=== PATIENT | male | born 1940 | race Caucasian/White ===

== ENCOUNTER 2017-12-22 17:50 | Inpatient (IN) | payer MEDICARE, OTHER, SELFPAY ==
[2017-12-22] VITALS (7 sets, daily range): BP systolic 140–187; BP diastolic 55–91; PULSE 62–110; RESP 15–18; TEMP 36.8–36.9; O2SAT 96–100; BMI 24.9; BMI 24.3
--- NOTE | 2017-12-22 18:46 | ED.FALL ---
HPI - Fall General Chief Complaint: Fall Stated Complaint: GLF Time Seen by Provider: 12/22/17 18:06 Source: patient and family Mode of arrival: EMS Limitations: no limitations History of Present Illness HPI Narrative: 77-year-old male with a history of Parkinson's disease seen by primary care provider down in [place] here for evaluation after the patient and his who is at bedside state that for the past month he has had progressive worsening of falls. He has fallen before 1 month ago however they state that over the past month they become more frequent and are now occurring on a daily basis and sometimes multiple times a day. Patient's states that he has been evaluated multiple times in the past at outside emergency department where she states that is only treatment has been IV fluid and then discharged home. She states that they have talked with his primary doctor regarding the situation and they have been told that ???nothing can be done ???patient does not see a neurologist. The primary doctor manages his Parkinson's disease. 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 Patient does not see a tent finisher on a regular basis. Patient states that the symptoms that he is in for today happen on random basis at home. Occasionally happen with change in positions such as sitting to standing but also happen when he is just standing. He does use a walker at baseline at home. He states that when the symptoms come on they are sudden onset. He states that he feels like his heart is ???beating slow ???when they happen. He states that he gets lightheaded. Has occasional vertigo during that time. States that his vision becomes blurry. Does not have any ringing in his ears. He states that he does fall when these events happen. Occasionally loses consciousness completely but also has occasion where he does not. He states that when he does lose consciousness he thinks that it is only for very short period of time. He states that when the events happen he has to lay on the floor for short period of time and then is able to get himself up but has to go and sit and then states that it is up to an hour before he can go about his daily activities. He states that after this our/recovery time he is back to his baseline. Related Data Home Medications Medication Instructions Recorded Confirmed Lactobacillus acidophilus 1 cap PO DAILY 12/22/17 12/22/17 [Probiotic] carbidopa-levodopa [Rytary] 4 cap PO QID 12/22/17 12/22/17 donepezil 10 mg PO DAILY 12/22/17 12/22/17 doxylamine succinate 25 mg PO BEDTIME PRN 12/22/17 12/22/17 droxidopa 100 mg PO TID 12/22/17 12/22/17 fludrocortisone 0.1 mg PO DAILY 12/22/17 12/22/17 folic acid-vit B6-vit B12 [Folbic] 1 tab PO DAILY 12/22/17 12/22/17 melatonin 5 mg PO BEDTIME PRN 12/22/17 12/22/17 midodrine 10 mg PO TID 12/22/17 12/22/17 potassium chloride 20 meq PO QID 12/22/17 12/22/17 sertraline 100 mg PO DAILY 12/22/17 12/22/17 Allergies Allergy/AdvReac Type Severity Reaction Status Date / Time morphine AdvReac Intermediate Hallucinati Verified 12/22/17 20:11 ng Review of Systems Review of Systems All systems reviewed & are unremarkable except as noted in HPI and below Constitutional Denies chills, Denies fever(s), Reports frequent falls, Denies headache(s), Denies lethargy and Denies weakness Eyes Reports blurry vision (When the episodes occur), Denies diplopia and Denies loss of vision ENT Ears, Nose, Mouth, and Throat: Reports dizziness, Denies headache(s) and Denies sore throat Cardiovascular Denies chest pain, Reports syncope, Denies rapid heart rate, Denies irregular heart rhythm, Reports lightheadedness, Reports palpitations (Feels like his heart beats low), Denies dyspnea, Denies dyspnea on exertion and Denies orthopnea Respiratory Denies cough, Denies dyspnea, Denies dyspnea on exertion and Denies wheezing Gastrointestinal Gastrointestinal: Denies abdominal pain, Denies change in bowel habits, Denies diarrhea, Denies nausea and Denies vomiting Genitourinary Denies hematuria, Denies flank pain, Denies urinary incontinence and Denies urinary urgency Musculoskeletal Reports abnormal gait, Reports back pain (Lower back pain ), Reports arthralgias (Hip pain), Denies muscle weakness, Denies numbness and Denies tingling Integumentary/Breasts Denies pruritus, Denies erythema, Denies rash and Denies wounds Neurologic Reports abnormal gait, Denies behavioral changes, Denies confusion, Reports dizziness, Reports syncope, Reports frequent falls, Denies headache(s), Reports lack of coordination, Denies loss of vision, Denies numbness, Denies convulsions, Denies seizure-like activity, Denies tingling and Denies weakness Psychiatric Denies behavioral changes and Denies confusion Endocrine Reports palpitations (Feels like his heart beats low) Hematologic/Lymphatic Denies easy bruising Allergic/Immunologic Denies wheezing Exam Initial Vital Signs Initial Vital Signs: Vital Signs Temperature 98.4 F 12/22/17 17:55 Pulse Rate 73 12/22/17 17:55 Respiratory Rate 17 12/22/17 17:55 Blood Pressure 140/62 H 12/22/17 17:55 Pulse Oximetry 100 12/22/17 17:55 Const General: cooperative, healthy appearing and well developed Nutritional Appearance: well nourished Orientation: alert, awake, oriented x3 and not confused [facility] Head: normal to inspection, normocephalic and atraumatic Ears: hearing grossly normal bilaterally Mouth: oral mucosae normal Eyes Pupils: PERRL Neck Neck: normal visual inspection Resp Effort & Inspection: normal respiratory effort, able to speak in complete sentences, no respiratory distress and no use of accessory muscles Auscultation: clear to auscultation bilaterally, no rales, no rhonchi and no wheezes Cardio Rate: regular rate Rhythm: regular rhythm Heart Sounds: no click, no gallops, no murmurs and no rubs Pulses: normal peripheral pulses GI Inspection: non-distended Palpation: soft, no hepatosplenomegaly, No guarding, No pulsatile mass and No tender Auscultation: normal bowel sounds Skin General: no rashes or lesions noted, No jaundice and No petechiae Neuro General: alert, awake and oriented x3 Cranial Nerves: CN's II-XI intact bilaterally Cognition: normal cognition Speech: speech normal Sensory Exam: no sensory deficits noted Other: Patient with rhythmic shaking bilateral upper extremities that he states is at baseline per his Parkinson's. He does have time when he can suppress the shaking completely however it does appear that when he becomes worried especially during our discussions he has problems controlling the shaking. Does seem to be upper extremity more than lower extremity. Patient does state that this is baseline. Extrem General: full ROM, no clubbing, cyanosis or edema, no pedal edema and no calf tenderness PFSH Medical History Insomnia (Acute) Parkinson disease (Acute) Social History household members: spouse and children Smoking Status: Never smoker alcohol intake: former Course Orders Ordered: Acetaminophen (Tylenol) 650 mg PO Q6HR PRN PRN Reason: As Needed for Fever/Mild Pain Donepezil HCl (Aricept) 10 mg PO DAILY [facility] Fludrocortisone Acetate (Florinef) 0.1 mg PO DAILY [facility] Magnesium Hydroxide (Milk Of Magnesia) 30 ml PO DAILY PRN PRN Reason: Constipation Midodrine (Midodrine) 10 mg PO TID [facility] Last Admin: 12/22/17 22:19 Dose: 10 mg Non-Formulary Medication (Droxidopa [Droxidopa]) 100 mg PO TID [facility] Last Admin: 12/22/17 22:19 Dose: 100 mg Non-Formulary Medication (Melatonin [Melatonin]) 5 mg PO BEDTIME PRN PRN Reason: Insomnia Non-Formulary Medication (Carbidopa-Levodopa [Rytary]) 4 cap PO QID [facility] Last Admin: 12/22/17 22:15 Dose: 4 cap Non-Formulary Medication (Doxylamine Succinate [Doxylamine Succinate]) 25 mg PO BEDTIME PRN PRN Reason: Insomnia Potassium Chloride (Klor-Con M20) 20 meq PO QID [facility] Last Admin: 12/22/17 22:19 Dose: 20 meq Sertraline HCl (Zoloft) 100 mg PO DAILY [facility] Vital Signs - 8 hr 12/22/17 21:30 12/22/17 23:40 12/23/17 01:28 Temperature 98.4 F 98.2 F Pulse Rate 68 63 Respiratory Rate 18 16 Blood Pressure 187/91 H 145/71 H Pulse Oximetry 96 97 96 12/23/17 04:43 Temperature 98.1 F Pulse Rate 62 Respiratory Rate 16 Blood Pressure 163/76 H Pulse Oximetry 96 MDM - Fall Lab Data Attestation: I reviewed the patient's lab results. Result diagrams: 12/22/17 19:11 12/22/17 19:11 Lab Results 12/22/17 12/22/17 12/22/17 Range/Units 19:11 19:11 19:11 WBC 7.1 (4.5-11.0) X10^3/uL RBC 3.89 L (4.5-5.9) X10^6/uL Hgb 13.6 (13.5-17.5) g/dL Hct 39.4 L (41-53) % MCV 101.3 H (80-100) fL MCH 34.9 H (26-34) PG MCHC 34.4 (30-36) % RDW 14.4 (11.6-14.8) % Plt Count 163 (150-400) X10^3/uL Neut % (Auto) 72.1 (50-75) % Lymph % (Auto) 16.6 L (25-40) % [place] % (Auto) 7.4 (3-14) % Eos % (Auto) 2.8 (2-4) % Baso % (Auto) 1.1 (0-2) % Neut # (Auto) 5100 (0575-5768) /uL Sodium 141 (137-145) mmol/L Potassium 3.9 (3.4-5.1) mmol/L Chloride 104 (98-107) mmol/L Carbon Dioxide 27 (22-32) mmol/L BUN 23 H (9-20) mg/dL Creatinine 1.00 (0.66-1.25) mg/dL Estimated GFR > 60.0 (>60) mL/min BUN/Creatinine Ratio 23.0 H (6-22) Glucose 106 (80-110) mg/dL Calcium 8.8 (8.4-10.2) mg/dL Troponin I < 0.012 (0.01-0.034) ng/mL B-Natriuretic Peptide 234.0 H (<29.3) Imaging Data Lumbar spine x-ray: Radiologist's impression: PROCEDURE: XR LUMBAR SPINE 2-3V INDICATIONS: 77-year-old male with low back pain after fall. TECHNIQUE: 3 views of the lumbar spine were acquired. COMPARISON: None. FINDINGS: Bones: 5 [id number] vertebrae are present. There is normal bony alignment. No vertebral body compression fractures. There is multilevel lumbar spine disc degeneration, as well as lower lumbar spine facet joint degeneration. No suspicious bony lesions. Soft tissues: Overlying bowel gas pattern is normal. No suspicious soft tissue calcifications. There is aortoiliac atherosclerosis. IMPRESSION: No acute bony injuries of the lumbar spine. Dictated by: Brendan Vrema M.D. on 12/22/2017 at 19:34 Hip x-ray: Radiologist's impression: PROCEDURE: XR HIP W PEL IF DONE RT 2V INDICATIONS: 77 year-old male with right hip pain after fall. TECHNIQUE: AP pelvis with lateral view(s) of the right hip(s). COMPARISON: None. FINDINGS: Bones: No fractures or dislocations. Pelvic ring appears intact. No suspicious bony lesions. Soft tissues: The visualized bowel gas pattern is normal. No suspicious soft tissue calcifications. Multiple prostate radiation seed implants are present. IMPRESSION: No acute bony injuries of the pelvic ring or right hip. Dictated by: Brendan Verma M.D. on 12/22/2017 at 19:36 ECG Data Attestation: I personally reviewed and interpreted this ECG as follows: Prior ECG tracings: not available for review Interpretation: Sinus rhythm Ventricular rate is 66 Normal axis Normal intervals Normal QRS Normal QTC Nonspecific ST T wave changes MDM Narrative Medical decision making narrative: X-rays negative for acute fractures. Patient's symptoms that he presents today especially with his statements about feeling like his heart is beating slow and the reports from EMS stating that he had a low blood pressure today next somewhat concern for cardiac etiology such as arrhythmia for his episodes that he is having. Patient is on fludrocortisone and midodrine that are both used for hypotension. Patient states that he has not had a cardiac echo since his last coronary event 13 years ago. Patient's symptoms could also be the result of his Parkinson's disease which may be worsening over the past several weeks. I discussed all this with the patient and the family who was at bedside. I did talk to them about concerns about him being at home and about whether not he ought to be at a nursing facility. They state that they have not talked about this up to this point. I discussed the case with Dr. Carrasquillo and will admit the patient for telemetry overnight and for an echo tomorrow. I discussed this with the patient and the family. They expressed understanding and agreement with plan. Discharge Plan Departure Patient Disposition: Admitted as Observation Clinical Impression: Syncope, Parkinson disease Discharge Date/Time: 12/22/17 21:30 Interventions: ED Discharge Assessment Last Done: 12/22/17 21:23 Admit Date/Time: 12/22/17 20:57 Admit Provider: Crescencio Carrasquillo
[2017-12-22 19:34] LABS: Add Manual Diff / Slide Review NO; Basophils Percent Auto 1.1 % (0-2); Eosinophils Percent Auto 2.8 % (2-4); Hematocrit 39.4 % (41-53); Hemoglobin 13.6 g/dL (13.5-17.5); Lymphocytes Percent Auto 16.6 % (25-40); Mean Corpuscular HGB Conc 34.4 % (30-36); Mean Corpuscular Hemoglobin 34.9 PG (26-34); Mean Corpuscular Volume 101.3 fL (80-100); Monocytes Percent Auto 7.4 % (3-14); Neutrophils Absolute Auto 5100 /uL (3000-5900); Neutrophils Percent Auto 72.1 % (50-75); Platelet Count 163 X10^3/uL (150-400); Red Blood Cell Count 3.89 X10^6/uL (4.5-5.9); Red Cell Distribution Width 14.4 % (11.6-14.8); White Blood Cell Count 7.1 X10^3/uL (4.5-11.0)
[2017-12-22 19:45] LABS: Blood Urea Nitrogen 23 mg/dL (9-20); Calcium 8.8 mg/dL (8.4-10.2); Carbon Dioxide 27 mmol/L (22-32); Chloride 104 mmol/L (98-107); Estimated Glomerular Filt Rate > 60.0 mL/min (>60); Glucose 106 mg/dL (80-110); HEMOLYSIS 29 (0-50); Potassium 3.9 mmol/L (3.4-5.1); Sodium 141 mmol/L (137-145)
[2017-12-22 19:57] LABS: Troponin I < 0.012 ng/mL (0.01-0.034)
[2017-12-22] MEDS: CARBIDOPA LEVODOPA 4 EACH PO (22:15)
[2017-12-22] MEDS: MIDODRINE HCL 5 MG TABLET 10 MG PO (22:19)
[2017-12-22] MEDS: DROXIDOPA 100 MG 100 EACH PO (22:19)
[2017-12-22] MEDS: POTASSIUM CHLORIDE 20 MEQ TAB PO (22:19)
[2017-12-23] VITALS (11 sets, daily range): BP systolic 75–182; BP diastolic 44–93; PULSE 61–74; RESP 16–61; TEMP 36.6–37; O2SAT 96–99
--- NOTE | 2017-12-23 | DI.ECHO.S_ITS ---
[facility] +---------+ : : [address] : [place] : : : : [id number] : : : : Phone: [phone]+ Echocardiogram Report + + :Name: MORGAN JALLOH Study Date: 12/23/2017 Height: 72 in : :[facility] Weight: 184 lb : : Gender: Male BSA: 2.1 m2 : :: 1940 Age: 77 yrs BP: 151/86 mmHg: :Reason For Study: Syncope : :Ordering Physician: Dr. Prather : :Foreign Performed By: Soniya Torres : :Referring: Dr. Farhan Persaud : + + Interpretation Summary The left ventricle is normal in size. The ejection fraction is estimated to be 50-55%. There is basal posterolateral wall akinesis. There is proximal mid posteriolateral wall moderate hypokinesis. There is no significant valvular heart disease. No other echocardiographic abnormalities seen. Echocardiographic findings are consistent with coronary artery disease. Procedure: A two-dimensional transthoracic echocardiogram with color flow and Doppler was performed. The study quality was technically difficult. Comparison is made with the echocardiogram of 09-11-04. The patient was in normal sinus rhythm during the exam. The patient had frequent PVCs during the exam. Left Ventricle: The left ventricle is normal in size. There is normal left ventricular wall thickness. The ejection fraction is estimated to be 50-55%. There is basal posterolateral wall akinesis. There is proximal mid posteriolateral wall moderate hypokinesis. Assessment of diastolic parameters indicates a relaxation abnormality of the left ventricle, consistent with normal filling pressures. Right Ventricle: The right ventricle is normal size. The right ventricular systolic function is normal. Atria: Both atria are normal in size. Mitral Valve: The mitral valve leaflets appear mildly thickened, but open well. There is no mitral regurgitation noted. Aortic Valve: The aortic valve opens well. The aortic valve is slightly calcified. No aortic regurgitation is present. Tricuspid Valve: The tricuspid valve leaflets are thin and pliable. There is trace tricuspid regurgitation. Pulmonic Valve: The pulmonic valve is not well visualized. Great Vessels: The aortic root is normal size. The ascending aorta could not be visualized. The inferior vena cava was not visualized. Pericardium/ Pleura There is no pericardial effusion. There is no pleural effusion. + : : :I WMSI = 1.25 % Normal = 81 : + + + :+ +:+ ++ +: : :: ::: :: :: : :: ::: :: :: : :: ::: :: :: : :: ::: :: :: : :: ::: :: :: : :: ::: :: :: : :: ::+ ++ +: : :: ::+ ++ +: : :: ::: :: :: : :: ::: :: :: : :: ::: :: :: : :: ::: :: :: : :: ::: :: :: : :: ::: :: :: : :+ +:+ ++ +: : + + : : : : : Segments Size : : :+--------+--------+: : ::1-2 :small :: :X - Cannot 1 - Normal 2 - 3 - Akinetic 4 - :+--------+--------+: :Interpret Hypokinetic Dyskinetic ::3-5 :moderate:: :5 - :+--------+--------+: :Aneurysmal ::6-14 :large :: : :+--------+--------+: : ::15-16 :diffuse :: : :+--------+--------+: + + MMode/2D Measurements & Calculations LVIDd: 4.7 cm Ao root diam: 3.6 cm LVIDs: 3.5 cm Aortic Jxn: 2.5 cm FS: 25.5 % Ao Arch Diam (Prox Trans): 3.0 cm IVSd: 1.1 cm LVPWd: 0.95 cm LV fam. diameter/BSA (cm/m^2): 2.3 LV sys. diameter/BSA (cm/m^2): 1.7 LA dimension: 4.5 cm RA long axis: 5.5 cm LA A2 area: 29.4 cm2 RA area: 21.9 cm2 LA A4 area: 27.9 cm2 RA vol: 73.4 ml LA length (vol): 6.5 cm RA : 35.7 ml/m2 LA vol: 106.8 ml RVDd major: 6.3 cm LA vol index: 52.0 ml/m2 RVD1 (basal): 3.8 cm RVD2 (mid): 3.2 cm Doppler Measurements & Calculations Ao V2 max: 148.0 cm/sec MV E max maurilio: 60.7 cm/sec Ao V2 mean: 96.9 cm/sec MV A max maurilio: 86.1 cm/sec Ao max P.8 mmHg MV E/A: 0.71 Ao mean P.5 mmHg Med Peak E' Maurilio: 5.6 cm/sec Ao V2 VTI: 33.8 cm E/E' med: 10.8 Lat Peak E' Maurilio: 6.3 cm/sec E/E' lat: 9.6 E/e' average: 10.2 MV dec time: 0.27 sec MV P1/2t: 76.8 msec TR max maurilio: 269.8 cm/sec MV P1/2t max maurilio: 56.8 cm/sec TR max P.1 mmHg MVA(P1/2t): 2.9 cm2 Reading Physician:01:11 PM
--- NOTE | 2017-12-23 09:23 | P.HP_ITS ---
History of Present Illness Chief complaint: GLF Narrative: Meño Alvarado is a 77 year old male with history of Parkinson's disease and autonomic dysfunction with orthostatic hypotension from Parkinson' s. He has a history of multiple falls and has been under the care of a Parkinson's specialist in [place] in the past it sounds like he has not seen that physician for over a year due to difficulty getting down there. Patient states he was seen by a neurologist in [place] in since then but did not feel they were helping his problems. He is managed by his primary care physician in [place] who sounds like it is overseeing the Parkinson's treatment primarily at this point. The patient relates that yesterday he has fell twice 1 time using his walker he says that he gets dizzy and unbalanced and unable to continue. He has multiple bruises and bumps all over his arms and legs from previous falls. He is becoming basically unmanageable at home due to his frequent falling. He was evaluated in the emergency department last night with x-rays nothing was fractured no bony abnormalities were noted. He denies any chest pain or pressure prior to him falling. He does note his heart beating irregular usually when he gets these episodes however. Patient History Medical History Coronary artery disease (Chronic) Insomnia (Chronic) Neurogenic orthostatic hypotension (Chronic) Parkinson disease (Chronic) Family & Social History Social History: household members spouse,children Prior Living Arrangements House Safety & Behavioral: Feels Safe in Current Yes Environment Been Physically Hurt or No Threatened By a Person Suicidal Ideation Description None Suicide Plan Description No Plan Tobacco & Substance use: Smoking Status Never smoker alcohol intake former alcohol intake frequency 0-2 drinks per day Substance Use Type does not use Meds Home Medications Medication Instructions Recorded Confirmed Type Lactobacillus acidophilus 1 cap PO DAILY 12/22/17 12/22/17 History [Probiotic] carbidopa-levodopa [Rytary] 4 cap PO QID 12/22/17 12/22/17 History donepezil 10 mg PO DAILY 12/22/17 12/22/17 History doxylamine succinate 25 mg PO BEDTIME PRN 12/22/17 12/22/17 History droxidopa 100 mg PO TID 12/22/17 12/22/17 History fludrocortisone 0.1 mg PO DAILY 12/22/17 12/22/17 History folic acid-vit B6-vit B12 [Folbic] 1 tab PO DAILY 12/22/17 12/22/17 History melatonin 5 mg PO BEDTIME PRN 12/22/17 12/22/17 History midodrine 10 mg PO TID 12/22/17 12/22/17 History potassium chloride 20 meq PO QID 12/22/17 12/22/17 History sertraline 100 mg PO DAILY 12/22/17 12/22/17 History Allergies Allergy/AdvReac Type Severity Reaction Status Date / Time morphine AdvReac Intermediate Hallucinati Verified 12/22/17 20:11 ng Review of Systems Review of Systems All systems reviewed & are unremarkable except as noted in HPI and below Exam Vital Signs (past 8 hours): Vital Signs - 8 hr 3 12/23/17 01:28 12/23/17 04:43 Temperature 98.1 F Pulse Rate 62 Respiratory Rate 16 Blood Pressure 163/76 H Pulse Oximetry 96 96 Pulse Oximetry 96 Oxygen Delivery Method Room Air Narrative Exam Narrative: Pleasant elderly male with course tremor upper extremities at rest he is awake alert he is cooperative and answers questions appropriately his gives a good history HEENT exam unremarkable Neck supple Lungs Clear to auscultation Heart regular rhythm no murmur noted Abdomen soft nontender bowel sounds present no organomegaly Skin warm and dry Neuro exam awake alert oriented x3 resting tremor noted he also has increased muscle tone and cogwheeling noted especially in the wrist bilateral. No focal motor deficits Extremities he has got bruising of various aging in the upper and lower extremities. Objective Labs Result Diagrams: 12/22/17 19:11 12/22/17 19:11 Labs: Laboratory Results - last 24 hr 12/22/17 12/22/17 12/22/17 19:11 19:11 19:11 WBC 7.1 RBC 3.89 L Hgb 13.6 Hct 39.4 L MCV 101.3 H MCH 34.9 H MCHC 34.4 RDW 14.4 Plt Count 163 Neut % (Auto) 72.1 Lymph % (Auto) 16.6 L [place] % (Auto) 7.4 Eos % (Auto) 2.8 Baso % (Auto) 1.1 Neut # (Auto) 5100 Sodium 141 Potassium 3.9 Chloride 104 Carbon Dioxide 27 BUN 23 H Creatinine 1.00 Estimated GFR > 60.0 BUN/Creatinine Ratio 23.0 H Glucose 106 Calcium 8.8 Troponin I < 0.012 B-Natriuretic Peptide 234.0 H Assessment & Plan (1) Insomnia: Current visit: Yes Status: Chronic (2) Parkinson disease: Current visit: Yes Status: Chronic (3) Neurogenic orthostatic hypotension: Current visit: Yes Status: Chronic (4) Coronary artery disease: Problem details: Hx of 3 [place] in past Current visit: Yes Status: Chronic Plan: Plan: Assessment and plan 1. Frequent falls probably secondary to Parkinson's difficulty with balance and also with the orthostatic hypotension. Plan to check orthostatic vitals while here and document any drops of blood pressure. He is on several medications to treat the orthostatic hypotension and is actually hypertensive in the supine position. This is a very difficult situation it sounds like he has had various trials of different medications over the years to try to help this and nothing has been satisfactory to help him. I think that long-term he needs to get back with a Parkinson's specialist to help manage this problem. At this point I am concerned he might be too hypertensive from his medications but we will watch this carefully while he is here new changes initially. Physical therapy to evaluate the patient and recommend recommendations. He already is using a walker at home. Also will check an echo and cardiac telemetry looking for other underlying causes of falls or syncope. Patient is on observation status 2. History of coronary artery disease seems clinically quiet EKG without any ST changes. 3. Code status patient desires to be DNR
[2017-12-23] MEDS: POTASSIUM CHLORIDE 20 MEQ TAB PO ×4 (09:42→20:42)
[2017-12-23] MEDS: DROXIDOPA 100 MG 100 EACH PO (09:42)
[2017-12-23] MEDS: MIDODRINE HCL 5 MG TABLET 10 MG PO ×2 (09:43→16:24)
[2017-12-23] MEDS: DONEPEZIL 5 MG TABLET 10 MG PO (09:43)
[2017-12-23] MEDS: CARBIDOPA LEVODOPA 4 EACH PO ×4 (09:44→20:42)
[2017-12-23] MEDS: FLUDROCORTISONE 0.1 MG TABLET PO (09:44)
--- NOTE | 2017-12-23 11:46 | PC.NURSE ---
compression stockings requested from materials, will place when sent.
--- NOTE | 2017-12-23 11:53 | CM.DANOTE ---
Addendum entered by Cari Up LPN 12/23/17 12:48: Met now with pt and his Fay after their discussion with Dr. Arriaga. Both say they are pleased that Dr. Arriaga plans to keep pt in hospital. Pt says I feel when I stand up like I am going to pass out and then I just go down. Fay does say that they intend to see the neurologist in [place] who has helped pt in past. She specializes in Parkinson's. Both say they have not been able to find a comparable neurologist closer to home. But for now, the orthostatic hypotensive episodes and their primary concern. Agreed to check in tomorrow and follow accordingly. Original Note: Addendum entered by Cari Up LPN 12/23/17 12:12: Spoke now with Dr. Arriaga. Discussed PT findings including orthostatic hypotension (documentation not yet available) and BP lie/sit/stand noted by JUNI Brown as of [address] Arriaga notes he plans to change pt's admission to inpt status and that pt will continue on in the hospital for further care. Fay has just arrived. JUNI Brown will alert Dr. Arriaga to same. Original Note: DCP: assessment: Case received, EMR reviewed and met with pt. Introduced self and role. Pt is a 77 year old male who admitted here last night to care of hospitalist team. Admission status confirmed at this time as observation: per UR JUNI Gong. Payer: Medicare and [employer] for [employer] Pt carries a dx of Parkinson's and has not had recent neurology care for same. PCP: Dr. Persaud: [place]. PT Chapis attempted to work with pt this morning but states his BP issues made this difficult. She was not able to walk with him. ECHO was done this morning. Pt reports his Fay is on her way to the hospital. DC needs at this point are unclear. Pt does say he is homebound. His ability to do anything more than go to the car and be taken for a drive has deteriorated as his Parkinson's symptoms have progressed. Pt is open to [facility] if this would be helpful...Will see what Dr. Arriaga decides re POC going forward. Plan to meet with pt and his again after Dr. Arriaga gives them an update and go from there. Do plan to offer the [facility] Guide for [place] 2018 as is full of resources that may be helpful to them in the future.
[2017-12-23] MEDS: SODIUM CHLORIDE 0.9% 1,000 ML 100 ML IV (13:03)
--- NOTE | 2017-12-23 13:07 | PT.IIE ---
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 pt uses a 4WW for ambulation indoors/ outdoors. Activities of Daily Living and IADL's pt stated that his assists him with dressing and bathing. Prior Functional Level (Other details) pt stated that he has had falls for a few years now but lately has be more frequent with c/o dizziness or passing out. Social History Household Members spouse children Living Arrangements House Number of Floors (Floors) One Floor Number of Stairs To Enter/Railing? 3 steps with bilateral rails from the garage Home Environment High Toilet Walk in Shower Home Equipment Four Wheel Walker Shower Seat with Backrest Grab Bars Near Toilet Grab Bars In Shower Employment Status Retired Additional Social History Comment pt lives with spouse and daughter (works) M2 PT-IP Current Condition Start: 12/23/17 12:50 Freq: NEEDED Status: Active Protocol: Document 12/23/17 12:50 AB (Rec: 12/23/17 13:06 AB [id number]) Physical Therapy Current Condition Current Condition Evaluation Date 12/23/17 Treatment Diagnosis GLF; difficulty in walking Onset Date 12/22/17 Precautions Other Precautions orthostatic hypotension M3 PT-IP Subjective Start: 12/23/17 12:50 Freq: NEEDED Status: Active Protocol: Document 12/23/17 12:50 AB (Rec: 12/23/17 13:06 AB [id number]) Subjective Physical Therapy Visit Type Type Initial Evaluation Visit Start Time 10:55 Visit Stop Time 11:40 Total Visit Minutes 45 Number of RESEARCH SCHOLAR Visits 0 Physical Therapy Visit Comments Patient Comments pt agreeable to do therapy Therapy Pain Assessment Pain When Pain Assessed During Mobility Pain Present Pain Present Pain Reported Location Posterior Back Scale Used pain scale not stated M4 PT-IP Mobility and Gait Start: 12/23/17 12:50 Freq: NEEDED Status: Active Protocol: Document 12/23/17 12:50 AB (Rec: 12/23/17 13:06 AB [id number]) PT-Bed Mobility Assessment Supine to Sit Supine to Sit Minimal Assistance PT-Transfer Assessment Sit to and From Stand Sit to and from Stand Minimal Assistance Equipment Transfer Assistive Device Gait Belt Front Wheeled Walker Transfers Transfer Destination Chair Transfer Technique Stand Step Pivot Transfer Ability Level of Assist Minimal Assistance Comments Mobility Comments BP monitored: supine: 141/90 TX 64 sitting on EOb: 152/79 TX 67; after 2 min of sittin/77 standing : 114/56 with initial c/o dizziness after transfer to chair: 138/ 73 TX 67 pt stood up again after resting min A and cues for sit to stand: c/o feeling oozy and needs to sit down and unable to obtain BP BP checked in sitting right after standin/70 Gait Assessment Comments Gait Comments unable to ambulate due to c/o dizziness and significant drop in BP PT-Balance Assessment Sitting Balance and Reactions Static Sitting Balance Ability Good Dynamic Sitting Balance Ability Good Standing Balance and Reactions Static Standing Balance Ability Fair Dynamic Standing Balance Ability Poor M5 PT-IP Objective Assessments Start: 12/23/17 12:50 Freq: NEEDED Status: Active Protocol: Document 12/23/17 12:50 AB (Rec: 12/23/17 13:06 AB [id number]) Orientation Orientation/Cognition Level of Alertness Alert Orientation Name Age Place Situation Safety Awareness Decreased Safety Awareness Strength Lower Extremity Strength Assessment Bilaterally Impaired Muscle Tone Muscle Tone Location Right Severity of Tone Moderate Manifistation of Tone Resting Tremors Comments Muscle Tone Comments R arm/hand resting tremor M6 PT-IP Treatment Start: 12/23/17 12:50 Freq: NEEDED Status: Active Protocol: Document 12/23/17 12:50 AB (Rec: 12/23/17 13:06 AB [id number]) Physical Therapy Treatment Education Education Provided Safety M7 PT-IP Assessment and Plan Start: 12/23/17 12:50 Freq: NEEDED Status: Active Protocol: Document 12/23/17 12:50 AB (Rec: 12/23/17 13:06 AB [id number]) PT Summary Assessment and Plan Potential Rehabilitation Potential Fair Status of Condition at Evaluation Unstable Summary Impairments Strength Balance Coordination Cognition Bed Mobility Transfers Gait Activity Tolerance Assessment Summary pt requiring on eperson assist with mobility with decrease activity tolerance influenced by decrease in BP. pt with significant drop in BP from 141/90 in supine to 114/56 in standing with c/o lightheadedness and feeling oozy per pt. pt unable to ambulate at this time. d/c plan depending on progress and BP stabilization but at this time may require SNF rehab. Goals Bed Mobility Goal Independent Transfer Goal Standby Assistance Gait Goal Contact Guard Assistance Gait Distance 100 Other Goals up/down 3 steps with bialteral rails CGA Days to Meet Goals 3 Frequency of Treatment Frequency Of Treatment Twice a Day Treatment Plan Physical Therapy Treatment Plan Bed Mobility Training Transfer Training Gait Training Therapeutic Exercise Balance Retraining Hot or Cold Pack Neuromuscular Re-ed Coordination Retraining Manual Therapy Other Recommendations and Next Treatment ambulation Focus Recommendations To Nursing Amount of Assist Needed 2 Person Assist Discharge Recommendations PT Discharge Recommendations Home with 24/7 Assist Home Health SNF Rehab Other Discharge Recommendations SNF vs home with 24/7 and PT Provider Visit Care Team Role Provider Type Darrel Carpenter DO Emergency Provider Physician Specialty: Emergency Medicine Crescencio Carrasquillo MD Admit Provider Physician Attending Provider Specialty: Internal Medicine
[2017-12-23] MEDS: SERTRALINE 50 MG TABLET 100 MG PO (13:28)
--- NOTE | 2017-12-23 15:22 | PT.IPTN ---
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 (12/22/17) Physical Therapy Treatment Note M2 PT-IP Current Condition Start: 12/23/17 12:50 Freq: NEEDED Status: Active Protocol: Document 12/23/17 12:50 AB (Rec: 12/23/17 13:06 AB [id number]) Physical Therapy Current Condition Current Condition Evaluation Date 12/23/17 Treatment Diagnosis GLF; difficulty in walking Onset Date 12/22/17 Precautions Other Precautions orthostatic hypotension M3 PT-IP Subjective Start: 12/23/17 12:50 Freq: NEEDED Status: Active Protocol: Document 12/23/17 15:15 AB (Rec: 12/23/17 15:22 AB [id number]) Subjective Physical Therapy Visit Type Type Treatment Note Visit Start Time 14:20 Visit Stop Time 14:57 Total Visit Minutes 37 Number of MANAGER MARKETING COMMUNICATIONS Visits 0 Physical Therapy Visit Comments Patient Comments pt agreeable to do therapy Therapy Pain Assessment Pain Present Pain Present Denied Pain M4 PT-IP Mobility and Gait Start: 12/23/17 12:50 Freq: NEEDED Status: Active Protocol: Document 12/23/17 15:15 AB (Rec: 12/23/17 15:22 AB [id number]) PT-Bed Mobility Assessment Supine to Sit Supine to Sit Moderate Assistance Sit to Supine Sit to Supine Maximum Assistance Scooting Scooting to Edge of Bed Maximum Assistance PT-Transfer Assessment Sit to and From Stand Sit to and from Stand Maximum Assistance Use of Upper Extremities Equipment Transfer Assistive Device Gait Belt Front Wheeled Walker Comments Mobility Comments nurse present. monitored pt's BP: supine: 198/86 sitting on EOB: 160/86 initial standin/89 after ~ 2 min of standin /60 after walking: sitting on chair: 138/80 after transfer to bed: supine: 162/83 Gait Assessment Gait Gait Assistance Required: Maximum Assistance 1 Person Assist 2 Person Assist Distance (Feet) (feet) 5 Assistive Devices Assistive Device Gait Belt Front Wheeled Walker Orthotic/Prosthetic Devices or Brace: No Gait Deviations General Gait Pattern Decreased Stride Length Decreased Feet Clearance Flexed Trunk Factors Limiting Gait Function Factors Limiting Gait Function Decreased Activity Tolerance Decreased Strength Poor Balance Poor Safety Awareness Comments Gait Comments pt with unsteady gait and increase shuffling of RLE towards end of ambulation. Pt required max A x 1-2 with ambulation and max cues and chair follow. M5 PT-IP Objective Assessments Start: 12/23/17 12:50 Freq: NEEDED Status: Active Protocol: Document 12/23/17 12:50 AB (Rec: 12/23/17 13:06 AB [id number]) Orientation Orientation/Cognition Level of Alertness Alert Orientation Name Age Place Situation Safety Awareness Decreased Safety Awareness Strength Lower Extremity Strength Assessment Bilaterally Impaired Muscle Tone Muscle Tone Location Right Severity of Tone Moderate Manifistation of Tone Resting Tremors Comments Muscle Tone Comments R arm/hand resting tremor M6 PT-IP Treatment Start: 12/23/17 12:50 Freq: NEEDED Status: Active Protocol: Document 12/23/17 12:50 AB (Rec: 12/23/17 13:06 AB [id number]) Physical Therapy Treatment Education Education Provided Safety M7 PT-IP Assessment and Plan Start: 12/23/17 12:50 Freq: NEEDED Status: Active Protocol: Document 12/23/17 15:15 AB (Rec: 12/23/17 15:22 AB [id number]) PT Summary Assessment and Plan Potential Rehabilitation Potential Fair Summary Impairments Pain ROM Strength Balance Coordination Tone Cognition Bed Mobility Transfers Gait Activity Tolerance Progress Towards Goals Slow Progress due to Medical Issues Assessment Summary pt continues to have a significant drop in BP with standing. BP from supine: 198 /86 to 126/60 om standing. pt c/o dizziness but stated that it is not as bad as this morning. Will continues to assess pt's progress but at this time may require SNF. Goals Bed Mobility Goal Independent Transfer Goal Standby Assistance Gait Goal Contact Guard Assistance Gait Distance 100 Other Goals up/down 3 steps with bialteral rails CGA Days to Meet Goals 3 Frequency of Treatment Frequency Of Treatment Twice a Day Treatment Plan Physical Therapy Treatment Plan Bed Mobility Training Transfer Training Gait Training Therapeutic Exercise Balance Retraining Hot or Cold Pack Neuromuscular Re-ed Coordination Retraining Manual Therapy Other Recommendations and Next Treatment ambulation Focus Recommendations To Nursing Amount of Assist Needed 2 Person Assist Discharge Recommendations PT Discharge Recommendations Home with 24/7 Assist Home Health SNF Rehab Other Discharge Recommendations SNF vs home with 24/7 and PT
[2017-12-23] MEDS: DROXIDOPA 200 MG 200 EACH PO (16:25)
[2017-12-23] MEDS: MOMETASONE 120 SPRAY/17 GM NASAL SPRAY NASAL (19:43)
[2017-12-23] MEDS: MELATONIN 3 MG TABLET 6 MG PO (20:46)
[2017-12-23] MEDS: DOXYLAMINE SUCCINATE 25 MG 25 EACH PO (20:46)
[2017-12-24] VITALS (11 sets, daily range): BP systolic 83–187; BP diastolic 55–99; PULSE 56–79; RESP 17–18; TEMP 36.4–36.7; O2SAT 94–98
[2017-12-24] MEDS: MIDODRINE HCL 5 MG TABLET 10 MG PO ×3 (08:15→16:33)
[2017-12-24] MEDS: SERTRALINE 50 MG TABLET 100 MG PO (08:16)
[2017-12-24] MEDS: DROXIDOPA 200 MG 200 EACH PO ×3 (08:16→16:33)
[2017-12-24] MEDS: POTASSIUM CHLORIDE 20 MEQ TAB PO ×4 (08:16→20:31)
[2017-12-24] MEDS: FLUDROCORTISONE 0.1 MG TABLET PO (08:17)
[2017-12-24] MEDS: MOMETASONE 120 SPRAY/17 GM NASAL SPRAY NASAL ×2 (08:17→20:31)
[2017-12-24] MEDS: DONEPEZIL 5 MG TABLET 10 MG PO (08:17)
[2017-12-24] MEDS: CARBIDOPA LEVODOPA 4 EACH PO ×4 (08:17→20:31)
--- NOTE | 2017-12-24 10:39 | PT.IPTN ---
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 (12/23/17) Physical Therapy Treatment Note M2 PT-IP Current Condition Start: 12/23/17 12:50 Freq: NEEDED Status: Active Protocol: Document 12/23/17 12:50 AB (Rec: 12/23/17 13:06 AB [id number]) Physical Therapy Current Condition Current Condition Evaluation Date 12/23/17 Treatment Diagnosis GLF; difficulty in walking Onset Date 12/22/17 Precautions Other Precautions orthostatic hypotension M3 PT-IP Subjective Start: 12/23/17 12:50 Freq: NEEDED Status: Active Protocol: Document 12/24/17 10:25 AB (Rec: 12/24/17 10:39 AB [email or web address]) Subjective Physical Therapy Visit Type Type Treatment Note Visit Start Time 09:10 Visit Stop Time 09:46 Total Visit Minutes 36 Number of SAND TECHNOLOGIST Visits 0 Physical Therapy Visit Comments Patient Comments pt agreeable to do therapy M4 PT-IP Mobility and Gait Start: 12/23/17 12:50 Freq: NEEDED Status: Active Protocol: Document 12/24/17 10:25 AB (Rec: 12/24/17 10:39 AB [id number]) PT-Bed Mobility Assessment Supine to Sit Supine to Sit Maximum Assistance PT-Transfer Assessment Sit to and From Stand Sit to and from Stand Maximum Assistance Equipment Transfer Assistive Device Gait Belt Front Wheeled Walker Comments Mobility Comments BP monitored: supine: 130/67 sitting on EOB: 116/61 after 2 min of sittin/65 after standing: first attempt: 96/57 with pt sitting on EOB; pt having to sit down after ~ 2-3 sec of standing and pt stated that he feels he is falling backwards. pt required max A for steadiness. 2nd attempt: pt was able to maintain standing for ~ 15 sec : BP: 66/47. pt instructed to sit down and required max A for descent. pt stated that he is going to fall back. pt with c/o dizziness after standing. pt positioned in trendelenburg . BP: 141/74. pt c/o having a headache. positioned pt more of straight supine and pt stated that headache is getting better. informed nurse regarding BP and pt's complaints of dizziness and headache. also informed regarding holding off PT until pt is medically stable. Activity is limited due to decrease in BP. M5 PT-IP Objective Assessments Start: 12/23/17 12:50 Freq: NEEDED Status: Active Protocol: Document 12/23/17 12:50 AB (Rec: 12/23/17 13:06 AB [id number]) Orientation Orientation/Cognition Level of Alertness Alert Orientation Name Age Place Situation Safety Awareness Decreased Safety Awareness Strength Lower Extremity Strength Assessment Bilaterally Impaired Muscle Tone Muscle Tone Location Right Severity of Tone Moderate Manifistation of Tone Resting Tremors Comments Muscle Tone Comments R arm/hand resting tremor M6 PT-IP Treatment Start: 12/23/17 12:50 Freq: NEEDED Status: Active Protocol: Document 12/23/17 12:50 AB (Rec: 12/23/17 13:06 AB [id number]) Physical Therapy Treatment Education Education Provided Safety M7 PT-IP Assessment and Plan Start: 12/23/17 12:50 Freq: NEEDED Status: Active Protocol: Document 12/24/17 10:25 AB (Rec: 12/24/17 10:39 AB [id number]) PT Summary Assessment and Plan Potential Rehabilitation Potential Fair Summary Impairments Strength Balance Cognition Bed Mobility Transfers Gait Activity Tolerance Progress Towards Goals Slow Progress due to Medical Issues Assessment Summary pt continues to have significant decrease in BP limiting activity. pt at this time is not medically stable to PT. informed nurse that pt will be put on hold until pt is medically stable. informed caseworker as well. Goals Bed Mobility Goal Independent Transfer Goal Standby Assistance Gait Goal Contact Guard Assistance Gait Distance 100 Other Goals up/down 3 steps with bialteral rails CGA Days to Meet Goals 3 Frequency of Treatment Frequency Of Treatment Twice a Day Treatment Plan Physical Therapy Treatment Plan Bed Mobility Training Transfer Training Gait Training Therapeutic Exercise Balance Retraining Hot or Cold Pack Neuromuscular Re-ed Coordination Retraining Manual Therapy Other Recommendations and Next Treatment ambulation Focus Recommendations To Nursing Amount of Assist Needed 2 Person Assist Discharge Recommendations PT Discharge Recommendations SNF Rehab Other Discharge Recommendations SNF
--- NOTE | 2017-12-24 10:47 | PM.PN.1 ---
Subjective Date Patient Seen: 12/24/17 Time Patient Seen: 10:47 Interval history: He says he is not feeling any better today no big change Exam Vital Signs (past 8 hours): Vital Signs - 8 hr 12/24/17 05:25 12/24/17 07:00 12/24/17 08:29 Temperature 98.0 F 97.6 F Pulse Rate 73 Pulse Rate [Orthostatic Lying] 67 Pulse Rate [Orthostatic Sitting] 74 Pulse Rate [Orthostatic Standing] 79 Respiratory Rate 18 Blood Pressure 145/83 H Blood Pressure [Orthostatic Lying] 141/70 H Blood Pressure [Orthostatic Sitting] 160/93 H Blood Pressure [Orthostatic Standing] 83/55 L Pulse Oximetry 97 97 97 Pulse Oximetry 97 Oxygen Delivery Method Room Air Oxygen Flow Rate 0 Narrative Exam Narrative: Pleasant elderly male no acute distress coarse resting tremor noted HEENT exam unremarkable Oropharynx clear Heart regular rhythm Lungs clear Abdomen soft nontender Neuro exam awake alert oriented x3 resting tremor which is quite coarse noted he has some increased muscle tone and cogwheeling specially in the wrist bilateral there are no focal motor deficits Extremities some various bruising noted no other focal findings Objective Labs Result Diagrams: 12/22/17 19:11 12/22/17 19:11 Assessment & Plan Plan: Plan: One. Orthostatic hypotension secondary to autonomic insufficiency from his Parkinson's. This is become debilitating to him he cannot stand up without getting dizzy and falling every time we do orthostatic vitals on him his blood pressure drops. We have tried increasing his medications that are being used to treat the orthostatic hypotension and we will again watch today to see if that has helped I will give him 1 more L of fluid to see if that helps. Long-term he needs to be managed by a Parkinson's specialist and that can be arranged as an outpatient and he may need to be admitted to the [facility] facility upon discharge here if he is not having improvement in the symptoms. Echo shows normal LV function no significant valvular abnormalities 2. History of coronary artery disease clinically quiet 3. Code status patient desires to be DNR 4. Possible discharge to [facility] if he is unable to improve this severe orthostatic hypotension problem.
--- NOTE | 2017-12-24 10:50 | P.PN_ITS ---
Subjective Date Patient Seen: 12/24/17 Time Patient Seen: 10:47 Interval history: He says he is not feeling any better today no big change Exam Vital Signs (past 8 hours): Vital Signs - 8 hr 3 12/24/17 05:25 12/24/17 07:00 12/24/17 08:29 Temperature 98.0 F 97.6 F Pulse Rate 73 Pulse Rate [Orthostatic Lying] 67 Pulse Rate [Orthostatic Sitting] 74 Pulse Rate [Orthostatic Standing] 79 Respiratory Rate 18 Blood Pressure 145/83 H Blood Pressure [Orthostatic Lying] 141/70 H Blood Pressure [Orthostatic Sitting] 160/93 H Blood Pressure [Orthostatic Standing] 83/55 L Pulse Oximetry 97 97 97 Pulse Oximetry 97 Oxygen Delivery Method Room Air Oxygen Flow Rate 0 Narrative Exam Narrative: Pleasant elderly male no acute distress coarse resting tremor noted HEENT exam unremarkable Oropharynx clear Heart regular rhythm Lungs clear Abdomen soft nontender Neuro exam awake alert oriented x3 resting tremor which is quite coarse noted he has some increased muscle tone and cogwheeling specially in the wrist bilateral there are no focal motor deficits Extremities some various bruising noted no other focal findings Objective Labs Result Diagrams: 12/22/17 19:11 12/22/17 19:11 Assessment & Plan Plan: Plan: One. Orthostatic hypotension secondary to autonomic insufficiency from his Parkinson's. This is become debilitating to him he cannot stand up without getting dizzy and falling every time we do orthostatic vitals on him his blood pressure drops. We have tried increasing his medications that are being used to treat the orthostatic hypotension and we will again watch today to see if that has helped I will give him 1 more L of fluid to see if that helps. Long- term he needs to be managed by a Parkinson's specialist and that can be arranged as an outpatient and he may need to be admitted to the correction facility upon discharge here if he is not having improvement in the symptoms. Echo shows normal LV function no significant valvular abnormalities 2. History of coronary artery disease clinically quiet 3. Code status patient desires to be DNR 4. Possible discharge to correction if he is unable to improve this severe orthostatic hypotension problem.
[2017-12-24] MEDS: SODIUM CHLORIDE 0.9% 1,000 ML 150 ML IV (11:38)
--- NOTE | 2017-12-24 14:42 | PC.NURSE ---
PATIENT CONTINUES WITH ORTHOSTATIC HYPOTENSION TODAY, SYMPTOMATIC THIS AM WITH DROP TO 66/47 AFTER STANDING. IMPROVED THIS AFTERNOON WITH DROP FROM 172/86 AT 40 DEGREES SEMI-FOWLERS, AND DROP EVENTUALLY LOW 110/53 AFTER AMBULATING TO BR AND THEN TO RECLINER AND THEN STANDING ONCE AGAIN WITH SERIAL BP MEASUREMENTS Q 2MIN X2. SEE PHYSICAL THERAPY NOTES. PATIENT DENIES PAIN. STATES HE TENDS TO DO BETTER IN THE AFTERNOONS. PATIENT'S SPOUSE IS HERE, KEZIA IN CM NOTIFIED. SHE WILL COME DISCUSS SNF VS HOME.
--- NOTE | 2017-12-24 15:36 | PT.IPTN ---
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 (12/23/17) Physical Therapy Treatment Note M2 PT-IP Current Condition Start: 12/23/17 12:50 Freq: NEEDED Status: Active Protocol: Document 12/23/17 12:50 AB (Rec: 12/23/17 13:06 AB [id number]) Physical Therapy Current Condition Current Condition Evaluation Date 12/23/17 Treatment Diagnosis GLF; difficulty in walking Onset Date 12/22/17 Precautions Other Precautions orthostatic hypotension M3 PT-IP Subjective Start: 12/23/17 12:50 Freq: NEEDED Status: Active Protocol: Document 12/24/17 14:59 AB (Rec: 12/24/17 15:36 AB [id number]) Subjective Physical Therapy Visit Type Type Treatment Note Visit Start Time 13:30 Visit Stop Time 14:02 Total Visit Minutes 32 Notes pt was supposedly on hold for PT due to continued decrease in BP during standing. nurse and case worker was informed. nurse came in this afternoon and stated that dr. burgos wants PT to continue seeing him. explained to nurse regarding PT tx goals and pt has to be medically stable first. Nurse stated that she needs assistance with transferring pt to the toilet as pt needs to use the toilet urgently. thus, pt was seen for PT session. Number of MOHS SURGEON Visits 0 M4 PT-IP Mobility and Gait Start: 12/23/17 12:50 Freq: NEEDED Status: Active Protocol: Document 12/24/17 14:59 AB (Rec: 12/24/17 15:36 AB [id number]) PT-Bed Mobility Assessment Supine to Sit Supine to Sit Maximum Assistance Scooting Scooting to Edge of Bed Maximum Assistance PT-Transfer Assessment Sit to and From Stand Sit to and from Stand Maximum Assistance 1 Person Assistance Equipment Transfer Assistive Device Gait Belt Front Wheeled Walker Transfers Transfer Destination Chair Toilet Comments Mobility Comments pt ambulated from bedside to the toilet using FWW mod to max A and max cues for safety. pt can be impulsive. Pt required max A for sit to stand from toilet using grab bar to assist. pt was able to maintain standing using FWW for support mod to max A while nurse assisted with hygiene care. pt ambulated from the toilet to the chair using FWW mod to max A and max cues. BP monitored during tx: supine with HOB elevated to ~ 40 degrees: 172/86 sitting on EOB: 157/74 after 2 min of sittin/64; pt requested to ambulate to the toilet using FWW mod to max A and cues. after transferring back from toilet to chair: sitting on chair: 132/73 instructed pt to stand again and completed sit to stand max A and max cues. pt used FWW for support. BP standin/47 after 2 min of standin/53 sitting back on chair: 111/66 M5 PT-IP Objective Assessments Start: 12/23/17 12:50 Freq: NEEDED Status: Active Protocol: Document 12/23/17 12:50 AB (Rec: 12/23/17 13:06 AB [id number]) Orientation Orientation/Cognition Level of Alertness Alert Orientation Name Age Place Situation Safety Awareness Decreased Safety Awareness Strength Lower Extremity Strength Assessment Bilaterally Impaired Muscle Tone Muscle Tone Location Right Severity of Tone Moderate Manifistation of Tone Resting Tremors Comments Muscle Tone Comments R arm/hand resting tremor M6 PT-IP Treatment Start: 12/23/17 12:50 Freq: NEEDED Status: Active Protocol: Document 12/23/17 12:50 AB (Rec: 12/23/17 13:06 AB [id number]) Physical Therapy Treatment Education Education Provided Safety M7 PT-IP Assessment and Plan Start: 12/23/17 12:50 Freq: NEEDED Status: Active Protocol: Document 12/24/17 14:59 AB (Rec: 12/24/17 15:36 AB [id number]) PT Summary Assessment and Plan Potential Rehabilitation Potential Fair Summary Impairments Strength Balance Coordination Tone Cognition Bed Mobility Transfers Gait Activity Tolerance Progress Towards Goals Slow Progress due to Medical Issues Assessment Summary BP readings is better this afternoon but continues to have a significant decrease from 172/86 in supine to 110/ 53 in standing. pt will need SNF rehab to improve function. Goals Bed Mobility Goal Independent Transfer Goal Standby Assistance Gait Goal Contact Guard Assistance Gait Distance 100 Other Goals up/down 3 steps with bialteral rails CGA Days to Meet Goals 3 Frequency of Treatment Frequency Of Treatment Twice a Day Treatment Plan Physical Therapy Treatment Plan Bed Mobility Training Transfer Training Gait Training Therapeutic Exercise Balance Retraining Hot or Cold Pack Neuromuscular Re-ed Coordination Retraining Manual Therapy Other Recommendations and Next Treatment ambulation Focus Recommendations To Nursing Amount of Assist Needed 2 Person Assist Discharge Recommendations PT Discharge Recommendations SNF Rehab
--- NOTE | 2017-12-24 17:16 | CM.DPC ---
DCP: continued: Met with pt and his late this afternoon at request of pt, and janel RN. DCP issues discussed at length: outcome: plan for snf at d/c (likely Wednesday or >) Choice list: provided Decision: 1: [facility] No/[facility] Referral not sent do to lateness of hour. DCP tomorrow to followup. Fay will be here tomorrow for further discussion and confirmation. Hospice info visit process discussed at pt's request. Brochure provided. Explained visit can be done when pt at snf or at home. Both say pt is not ready for this step yet but they do want info for future planning. Fay will call the number on the [facility] brochure to followup on this. Fay also notes she was able to make an appt with the Parkinson's neurologist: January 27. P: snf at d/c....due to lateness of hour will not initiate this process now.
[2017-12-24] MEDS: SODIUM CHLORIDE 0.9% FLUSH 10 ML IV (20:31)
[2017-12-25] VITALS (10 sets, daily range): BP systolic 91–174; BP diastolic 39–99; PULSE 57–74; RESP 14–18; TEMP 36.2–37.2; O2SAT 96–98
[2017-12-25] MEDS: SODIUM CHLORIDE 0.9% FLUSH 10 ML IV ×3 (00:10→20:22)
[2017-12-25] MEDS: MIDODRINE HCL 5 MG TABLET 10 MG PO ×3 (08:15→15:47)
[2017-12-25] MEDS: DROXIDOPA 200 MG 200 EACH PO ×2 (08:15→12:32)
[2017-12-25] MEDS: CARBIDOPA LEVODOPA 4 EACH PO ×4 (08:16→20:23)
[2017-12-25] MEDS: MOMETASONE 120 SPRAY/17 GM NASAL SPRAY NASAL ×2 (08:16→20:22)
[2017-12-25] MEDS: DONEPEZIL 5 MG TABLET 10 MG PO (08:16)
[2017-12-25] MEDS: FLUDROCORTISONE 0.1 MG TABLET PO (08:16)
[2017-12-25] MEDS: POTASSIUM CHLORIDE 20 MEQ TAB PO ×4 (08:16→20:23)
[2017-12-25] MEDS: SERTRALINE 50 MG TABLET 100 MG PO (08:16)
--- NOTE | 2017-12-25 11:07 | PT.IPTN ---
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 (12/23/17) Physical Therapy Treatment Note M2 PT-IP Current Condition Start: 12/23/17 12:50 Freq: NEEDED Status: Active Protocol: Document 12/23/17 12:50 AB (Rec: 12/23/17 13:06 AB [id number]) Physical Therapy Current Condition Current Condition Evaluation Date 12/23/17 Treatment Diagnosis GLF; difficulty in walking Onset Date 12/22/17 Precautions Other Precautions orthostatic hypotension M3 PT-IP Subjective Start: 12/23/17 12:50 Freq: NEEDED Status: Active Protocol: Document 12/25/17 10:25 GGD (Rec: 12/25/17 11:07 GGD [id number]) Subjective Physical Therapy Visit Type Type Treatment Note Visit Start Time 10:00 Visit Stop Time 10:25 Total Visit Minutes 25 Number of CORPORATE SAFETY DIRECTOR Visits 1 Physical Therapy Visit Comments Patient Comments Pt going to shower with THORACIC MEDICINE SPECIALIST. Therapy Pain Assessment Pain Present Pain Present Denied Pain M4 PT-IP Mobility and Gait Start: 12/23/17 12:50 Freq: NEEDED Status: Active Protocol: Document 12/25/17 10:25 GGD (Rec: 12/25/17 11:07 GGD [id number]) PT-Bed Mobility Assessment Supine to Sit Supine to Sit Contact Guard Assistance Head of Bed Elevated Bedrails Scooting Scooting to Edge of Bed Moderate Assistance PT-Transfer Assessment Sit to and From Stand Sit to and from Stand Moderate Assistance 1 Person Assistance Use of Upper Extremities Equipment Transfer Assistive Device Gait Belt Front Wheeled Walker Transfers Transfer Destination Bedside Commode Comments Mobility Comments RN present monitored pt's BP. Stood at EOB for 4 min. Document 12/25/17 10:25 GGD (Rec: 12/25/17 11:07 GGD [id number]) PT Summary Assessment and Plan Summary Assessment Summary Pt unsteady and LOB during mobility. He had decrease BP with sit to stand. Frequency of Treatment Frequency Of Treatment Twice a Day Treatment Plan Other Recommendations and Next Treatment bed mobility, balance and gait Focus . Recommendations To Nursing Amount of Assist Needed 2 Person Assist Discharge Recommendations PT Discharge Recommendations SNF Rehab
--- NOTE | 2017-12-25 11:40 | PM.PN.1 ---
Subjective Date Patient Seen: 12/25/17 Time Patient Seen: 11:40 Interval history: Feeling less dizzy Exam Vital Signs (past 8 hours): Vital Signs - 8 hr 12/25/17 07:00 12/25/17 09:00 Pulse Rate [Orthostatic Lying] 62 Pulse Rate [Orthostatic Sitting] 64 Pulse Rate [Orthostatic Standing] 73 Blood Pressure [Orthostatic Lying] 152/74 H Blood Pressure [Orthostatic Sitting] 144/78 H Blood Pressure [Orthostatic Standing] 91/56 L Pulse Oximetry 98 Pulse Oximetry 98 Oxygen Delivery Method Room Air Oxygen Flow Rate 0 Narrative Exam Narrative: Sitting up in a chair which is the 1st time I have seen him do that. His orthostatic vitals are improving he still drops down to systolic of 90s when he stands up sometimes 100 and he has not had any hypertensive episodes while supine HEENT exam unremarkable Mucous membranes moist Heart regular rhythm Lungs clear Abdomen soft and nontender Neuro exam awake alert oriented x3 resting tremor less prominent today cogwheeling is noted no change Extremities various bruising throughout Objective Labs Result Diagrams: 12/22/17 19:11 12/22/17 19:11 Assessment & Plan Plan: Plan: One. Orthostatic hypotension secondary to autonomic insufficiency from his Parkinson's. This is become debilitating to him he cannot stand up without getting dizzy and falling every time we do orthostatic vitals on him his blood pressure drops. Clinically he has improved and the readings on the orthostatic vitals show improvement mildly. Plan to increase the medication up to 300 t.i.d. trying to avoid any supine hypertension and helping with the standing hypotension. Long-term he will need to be seen by his Parkinson's specialist for further evaluation and treatment of this problem hopefully we can get him to the point where he can safely get up and walk 2. History of coronary artery disease clinically quiet 3. Code status patient desires to be DNR 4. Possible discharge to [facility] if he is unable to improve this severe orthostatic hypotension problem.
--- NOTE | 2017-12-25 11:43 | P.PN_ITS ---
Subjective Date Patient Seen: 12/25/17 Time Patient Seen: 11:40 Interval history: Feeling less dizzy Exam Vital Signs (past 8 hours): Vital Signs - 8 hr 3 12/25/17 07:00 12/25/17 09:00 Pulse Rate [Orthostatic Lying] 62 Pulse Rate [Orthostatic Sitting] 64 Pulse Rate [Orthostatic Standing] 73 Blood Pressure [Orthostatic Lying] 152/74 H Blood Pressure [Orthostatic Sitting] 144/78 H Blood Pressure [Orthostatic Standing] 91/56 L Pulse Oximetry 98 Pulse Oximetry 98 Oxygen Delivery Method Room Air Oxygen Flow Rate 0 Narrative Exam Narrative: Sitting up in a chair which is the 1st time I have seen him do that. His orthostatic vitals are improving he still drops down to systolic of 90s when he stands up sometimes 100 and he has not had any hypertensive episodes while supine HEENT exam unremarkable Mucous membranes moist Heart regular rhythm Lungs clear Abdomen soft and nontender Neuro exam awake alert oriented x3 resting tremor less prominent today cogwheeling is noted no change Extremities various bruising throughout Objective Labs Result Diagrams: 12/22/17 19:11 12/22/17 19:11 Assessment & Plan Plan: Plan: One. Orthostatic hypotension secondary to autonomic insufficiency from his Parkinson's. This is become debilitating to him he cannot stand up without getting dizzy and falling every time we do orthostatic vitals on him his blood pressure drops. Clinically he has improved and the readings on the orthostatic vitals show improvement mildly. Plan to increase the medication up to 300 t.i.d. trying to avoid any supine hypertension and helping with the standing hypotension. Long-term he will need to be seen by his Parkinson's specialist for further evaluation and treatment of this problem hopefully we can get him to the point where he can safely get up and walk 2. History of coronary artery disease clinically quiet 3. Code status patient desires to be DNR 4. [facility] to improve this severe orthostatic hypotension problem.
--- NOTE | 2017-12-25 11:47 | PC.NURSE ---
Addendum entered by Belkys Galaviz R.N. 12/25/17 11:50: pt's ortho BP at 1000: 152/74 laying. 144/78 sitting. 91/56 standing. with PT Original Note: pt's orthostatic BP Plan of care is to increase drexidopa today and discharge to SNF possibly tomorrow.
--- NOTE | 2017-12-25 13:17 | CM.DPC ---
Ongoing DCP note and assmt: Left VM messg with spouse Fay this AM to ask her to check in with DCP if she was coming in to visit today. Early afternoon met with patient's spouse Fay Alvarado to verify their preference on SNF. She clarified that [facility] is their only choice, they do not want him to go to [facility]. She and their son would like to tour the facility, if possible. Let her know that I had already spoken with [facility] Admin Jovanna this morning, letting her know that family might be interested. Called Jovanna again to find out if tour of facility tomorrow could be arranged. No Admin staff will be on, but Jovanna stated they are welcome to go over and ask for nursing staff who will give them a tour tomorrow afternoon. Gave directions on location of [facility] and which door to enter, if they decide to go tour tomorrow. Spouse was appreciative. Met again with Fay and patient Meño in his room. Informed them that after discussion with Jovanna at [facility], the earliest she can see having a male bed for him would be Wednesday, and possibly as late as Wednesday, depending upon discharges. They were fine with that. Patient with considerable forgetfulness, and could not recall that [facility] discussion had been covered with DCP in his room yesterday. Fay reiterated that he is not safe to go home at this time, and needs facility for rehab. This was further verified by staff nurse Laurie who stated that he falls in an instant, with little warning. Hx of very frequent falls. Patient appeared to understand that he is not safe at home at this time, and spouse unable to lift him up when he does fall, so needs 24/7 care for a while, facility care best for now. Spoke with CUTTER HEAD SHARPENER who worked with patient today. She stated he did much better, was able to walk a longer distance with her assist. Still unsafe alone. Spoke with nurse Laurie. Let her know of [facility] availability, and that being the only option for family at this time, with Wed or being a day they hope to have male bed avail. Laurie is currently looking for Dr. Arriaga for another matter r/t this patient, and will try to get this information to him also, let him know of possible dates of availability/discharge to [facility]. Contacted Jovanna at [facility]: She has access and will review patient's EMR. She will need PASSR completed and need d/c meds once patient actually discharges. PASSR completed and faxed to them today by undersigned. Jovanna or other Admin from [facility] to call DCP earlier if male bed becomes avail. Heena Mcdonough RN
--- NOTE | 2017-12-25 14:00 | PT.IPTN ---
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 (12/23/17) Physical Therapy Treatment Note M2 PT-IP Current Condition Start: 12/23/17 12:50 Freq: NEEDED Status: Active Protocol: Document 12/23/17 12:50 AB (Rec: 12/23/17 13:06 AB [id number]) Physical Therapy Current Condition Current Condition Evaluation Date 12/23/17 Treatment Diagnosis GLF; difficulty in walking Onset Date 12/22/17 Precautions Other Precautions orthostatic hypotension M3 PT-IP Subjective Start: 12/23/17 12:50 Freq: NEEDED Status: Active Protocol: Document 12/25/17 13:54 GGD (Rec: 12/25/17 14:00 GGD [id number]) Subjective Physical Therapy Visit Type Type Treatment Note Visit Start Time 12:30 Visit Stop Time 13:00 Total Visit Minutes 30 Number of HOTEL OR MOTEL MANAGER Visits 2 Physical Therapy Visit Comments Patient Comments Pt states he wants to walk. Therapy Pain Assessment Pain Present Pain Present Denied Pain M4 PT-IP Mobility and Gait Start: 12/23/17 12:50 Freq: NEEDED Status: Active Protocol: Document 12/25/17 13:54 GGD (Rec: 12/25/17 14:00 GGD [id number]) PT-Bed Mobility Assessment Sit to Supine Sit to Supine Standby Assistance PT-Transfer Assessment Sit to and From Stand Sit to and from Stand Minimal Assistance 1 Person Assistance Use of Upper Extremities Equipment Transfer Assistive Device Gait Belt Front Wheeled Walker Transfers Transfer Destination Bed Gait Assessment Gait Gait Assistance Required: Contact Guard Assist 1 Person Assist Distance (Feet) (feet) 200 Assistive Devices Assistive Device Gait Belt Front Wheeled Walker Orthotic/Prosthetic Devices or Brace: No Gait Deviations General Gait Pattern Decreased Stride Length Decreased Feet Clearance Festinating Flexed Trunk Factors Limiting Gait Function Factors Limiting Gait Function Decreased Activity Tolerance Decreased Strength Poor Balance Poor Safety Awareness Comments Gait Comments Pt need cues for pace and to stay close to FWW. BP after activity 134/66. Gait with wheel chair follow. M5 PT-IP Objective Assessments Start: 12/23/17 12:50 Freq: NEEDED Status: Active Protocol: Document 12/23/17 12:50 AB (Rec: 12/23/17 13:06 AB [id number]) Orientation Orientation/Cognition Level of Alertness Alert Orientation Name Age Place Situation Safety Awareness Decreased Safety Awareness Strength Lower Extremity Strength Assessment Bilaterally Impaired Muscle Tone Muscle Tone Location Right Severity of Tone Moderate Manifistation of Tone Resting Tremors Comments Muscle Tone Comments R arm/hand resting tremor M6 PT-IP Treatment Start: 12/23/17 12:50 Freq: NEEDED Status: Active Protocol: Document 12/23/17 12:50 AB (Rec: 12/23/17 13:06 AB [id number]) Physical Therapy Treatment Education Education Provided Safety M7 PT-IP Assessment and Plan Start: 12/23/17 12:50 Freq: NEEDED Status: Active Protocol: Document 12/25/17 13:54 GGD (Rec: 12/25/17 14:00 GGD [id number]) PT Summary Assessment and Plan Summary Assessment Summary Pt improved with sit to stand and gait distance. Frequency of Treatment Frequency Of Treatment Twice a Day Treatment Plan Other Recommendations and Next Treatment bed mobility, balance and gait Focus . Recommendations To Nursing Amount of Assist Needed 2 Person Assist Discharge Recommendations PT Discharge Recommendations SNF Rehab
--- NOTE | 2017-12-25 15:38 | PT.IPTN ---
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 (12/23/17) Physical Therapy Treatment Note M2 PT-IP Current Condition Start: 12/23/17 12:50 Freq: NEEDED Status: Active Protocol: Document 12/23/17 12:50 AB (Rec: 12/23/17 13:06 AB [id number]) Physical Therapy Current Condition Current Condition Evaluation Date 12/23/17 Treatment Diagnosis GLF; difficulty in walking Onset Date 12/22/17 Precautions Other Precautions orthostatic hypotension M3 PT-IP Subjective Start: 12/23/17 12:50 Freq: NEEDED Status: Active Protocol: Document 12/25/17 15:20 RS (Rec: 12/25/17 15:38 RS [id number]) Subjective Physical Therapy Visit Type Type Treatment Note Visit Start Time 14:51 Visit Stop Time 15:20 Total Visit Minutes 29 Notes RN requesting PT help with pt ambulation due to ongoing medical issues. Number of CHEMICAL OPERATIONS AND TRAINING Visits 0 Physical Therapy Visit Comments Patient Comments Pt motivated to get up, wants to walk again. Therapy Pain Assessment Pain Present Pain Present Denied Pain M4 PT-IP Mobility and Gait Start: 12/23/17 12:50 Freq: NEEDED Status: Active Protocol: Document 12/25/17 15:20 RS (Rec: 12/25/17 15:38 RS [id number]) PT-Bed Mobility Assessment Supine to Sit Supine to Sit Contact Guard Assistance Head of Bed Elevated Bedrails Scooting Scooting to Edge of Bed Moderate Assistance PT-Transfer Assessment Sit to and From Stand Sit to and from Stand Contact Guard Assistance 1 Person Assistance Use of Upper Extremities Equipment Transfer Assistive Device Gait Belt Front Wheeled Walker Comments Mobility Comments Pt needing verbal cues for hand position to stand up from EOB w/ FWW. Gait Assessment Gait Gait Assistance Required: Contact Guard Assist 1 Person Assist Distance (Feet) (feet) 220 Assistive Devices Assistive Device Gait Belt Front Wheeled Walker Orthotic/Prosthetic Devices or Brace: No Gait Deviations General Gait Pattern Decreased Stride Length Decreased Feet Clearance Flexed Trunk Factors Limiting Gait Function Factors Limiting Gait Function Decreased Activity Tolerance Decreased Strength Poor Balance Poor Safety Awareness Comments Gait Comments Gait pattern is asymmetrical but consistently so. RLE almost appearing shorter. Despite this, pt is relatively stable. M5 PT-IP Objective Assessments Start: 12/23/17 12:50 Freq: NEEDED Status: Active Protocol: Document 12/23/17 12:50 AB (Rec: 12/23/17 13:06 AB [id number]) Orientation Orientation/Cognition Level of Alertness Alert Orientation Name Age Place Situation Safety Awareness Decreased Safety Awareness Strength Lower Extremity Strength Assessment Bilaterally Impaired Muscle Tone Muscle Tone Location Right Severity of Tone Moderate Manifistation of Tone Resting Tremors Comments Muscle Tone Comments R arm/hand resting tremor M6 PT-IP Treatment Start: 12/23/17 12:50 Freq: NEEDED Status: Active Protocol: Document 12/23/17 12:50 AB (Rec: 12/23/17 13:06 AB [id number]) Physical Therapy Treatment Education Education Provided Safety M7 PT-IP Assessment and Plan Start: 12/23/17 12:50 Freq: NEEDED Status: Active Protocol: Document 12/25/17 15:20 RS (Rec: 12/25/17 15:38 RS [id number]) PT Summary Assessment and Plan Potential Rehabilitation Potential Good Status of Condition at Evaluation Evolving Summary Impairments Strength Balance Coordination Tone Cognition Bed Mobility Transfers Gait Activity Tolerance Progress Towards Goals Slow Progress due to Medical Issues Assessment Summary Overall mobility continues to slowly improve, no dizziness or Frequency of Treatment Frequency Of Treatment Twice a Day Treatment Plan Physical Therapy Treatment Plan Bed Mobility Training Transfer Training Gait Training Therapeutic Exercise Balance Retraining Hot or Cold Pack Neuromuscular Re-ed Coordination Retraining Manual Therapy Other Recommendations and Next Treatment bed mobility, balance and gait Focus . Recommendations To Nursing Amount of Assist Needed 2 Person Assist Discharge Recommendations PT Discharge Recommendations SNF Rehab
[2017-12-25] MEDS: ACETAMINOPHEN 325 MG TABLET 650 MG PO (15:47)
[2017-12-25] MEDS: DROXIDOPA 300 MG 300 EACH PO (15:48)
[2017-12-26] VITALS (11 sets, daily range): BP systolic 72–148; BP diastolic 42–76; PULSE 55–79; RESP 14–18; TEMP 36.4–36.8; O2SAT 94–99
[2017-12-26] MEDS: CARBIDOPA LEVODOPA 4 EACH PO ×4 (08:14→20:17)
[2017-12-26] MEDS: SERTRALINE 50 MG TABLET 100 MG PO (08:15)
[2017-12-26] MEDS: MOMETASONE 120 SPRAY/17 GM NASAL SPRAY NASAL ×2 (08:15→20:17)
[2017-12-26] MEDS: DROXIDOPA 300 MG 300 EACH PO ×3 (08:15→17:09)
[2017-12-26] MEDS: MIDODRINE HCL 5 MG TABLET 10 MG PO ×3 (08:15→17:09)
[2017-12-26] MEDS: POTASSIUM CHLORIDE 20 MEQ TAB PO ×4 (08:15→20:17)
[2017-12-26] MEDS: SODIUM CHLORIDE 0.9% FLUSH 10 ML IV (08:15)
[2017-12-26] MEDS: DONEPEZIL 5 MG TABLET 10 MG PO (08:15)
[2017-12-26] MEDS: FLUDROCORTISONE 0.1 MG TABLET PO (08:15)
--- NOTE | 2017-12-26 11:53 | PM.PN.1 ---
Subjective Date Patient Seen: 12/26/17 Time Patient Seen: 11:53 Interval history: He again is feeling a little stronger less dizzy today but still not strong enough to be confident that he is not going to fall continually Exam Vital Signs (past 8 hours): Vital Signs - 8 hr 12/26/17 06:19 12/26/17 08:38 Temperature 98.0 F Pulse Rate 66 Respiratory Rate 16 Blood Pressure 132/71 H Pulse Oximetry 97 94 Pulse Oximetry 94 Oxygen Delivery Method Room Air Oxygen Flow Rate 0 Narrative Exam Narrative: He is resting comfortably HEENT exam unremarkable Mucous membranes moist Heart regular rhythm Lungs clear Abdomen soft nontender Neuro exam awake alert oriented resting tremor noted cogwheeling in the right hand wrist noted Extremities various bruising throughout Objective Labs Result Diagrams: 12/22/17 19:11 12/22/17 19:11 Assessment & Plan Plan: Plan: One. Orthostatic hypotension secondary to autonomic insufficiency from his Parkinson's. This is become debilitating to him he cannot stand up without getting dizzy and falling every time we do orthostatic vitals on him his blood pressure drops. Clinically he has improved and the readings on the orthostatic vitals show improvement mildly. Seems to be doing better at 300 t.i.d... Long-term he will need to be seen by his Parkinson's specialist for further evaluation and treatment of this problem hopefully we can get him to the point where he can safely get up and walk 2. History of coronary artery disease clinically quiet 3. Code status patient desires to be DNR 4. [place] [facility] [place] [facility] if he is unable to improve probable [place] a [place] [facility].
--- NOTE | 2017-12-26 11:56 | P.PN_ITS ---
Subjective Date Patient Seen: 12/26/17 Time Patient Seen: 11:53 Interval history: He again is feeling a little stronger less dizzy today but still not strong enough to be confident that he is not going to fall continually Exam Vital Signs (past 8 hours): Vital Signs - 8 hr 3 12/26/17 06:19 12/26/17 08:38 Temperature 98.0 F Pulse Rate 66 Respiratory Rate 16 Blood Pressure 132/71 H Pulse Oximetry 97 94 Pulse Oximetry 94 Oxygen Delivery Method Room Air Oxygen Flow Rate 0 Narrative Exam Narrative: He is resting comfortably HEENT exam unremarkable Mucous membranes moist Heart regular rhythm Lungs clear Abdomen soft nontender Neuro exam awake alert oriented resting tremor noted cogwheeling in the right hand wrist noted Extremities various bruising throughout Objective Labs Result Diagrams: 12/22/17 19:11 12/22/17 19:11 Assessment & Plan Plan: Plan: One. Orthostatic hypotension secondary to autonomic insufficiency from his Parkinson's. This is become debilitating to him he cannot stand up without getting dizzy and falling every time we do orthostatic vitals on him his blood pressure drops. Clinically he has improved and the readings on the orthostatic vitals show improvement mildly. Seems to be doing better at 300 t.i.d... Long- term he will need to be seen by his Parkinson's specialist for further evaluation and treatment of this problem hopefully we can get him to the point where he can safely get up and walk 2. History of coronary artery disease clinically quiet 3. Code status patient desires to be DNR 4. Possible discharge to intermediate if he is unable to improve probable discharge on Wednesday to a longterm.
--- NOTE | 2017-12-26 11:59 | PT.IPTN ---
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 (12/23/17) Physical Therapy Treatment Note M2 PT-IP Current Condition Start: 12/23/17 12:50 Freq: NEEDED Status: Active Protocol: Document 12/26/17 11:49 TMS (Rec: 12/26/17 11:59 TMS [id number]) Physical Therapy Current Condition Current Condition Evaluation Date 12/23/17 Treatment Diagnosis GLF; difficulty in walking Onset Date 12/22/17 Precautions Other Precautions orthostatic hypotension M3 PT-IP Subjective Start: 12/23/17 12:50 Freq: NEEDED Status: Active Protocol: Document 12/26/17 11:49 TMS (Rec: 12/26/17 11:59 TMS [id number]) Subjective Physical Therapy Visit Type Type Treatment Note Visit Start Time 11:15 Visit Stop Time 11:40 Total Visit Minutes 25 Number of ELECTRIC TRUCKER Visits 1 Physical Therapy Visit Comments Patient Comments Earlier in AM pt. sitting in chair. Took BP sitting; 89/54 so didn't walk with pt. Later in AM pt. sitting on toilet. M4 PT-IP Mobility and Gait Start: 12/23/17 12:50 Freq: NEEDED Status: Active Protocol: Document 12/26/17 11:49 TMS (Rec: 12/26/17 11:59 TMS [id number]) PT-Transfer Assessment Sit to and From Stand Sit to and from Stand Moderate Assistance 1 Person Assistance Use of Upper Extremities Equipment Transfer Assistive Device Gait Belt Front Wheeled Walker Comments Mobility Comments Pt. sitting on toilet upon arrival; Mod-A needed for sit> stand from toilet. Gait Assessment Gait Gait Assistance Required: Contact Guard Assist Minimum Assistance Distance (Feet) (feet) 220 Able to Maintain Weight Bearing Status Yes During Gait Assistive Devices Assistive Device Gait Belt Front Wheeled Walker Orthotic/Prosthetic Devices or Brace: No Gait Deviations General Gait Pattern Decreased Stride Length Decreased Feet Clearance Flexed Trunk Factors Limiting Gait Function Factors Limiting Gait Function Decreased Activity Tolerance Decreased Strength Poor Balance Poor Safety Awareness Comments Gait Comments W.C. followed gait for safety secondary flux in BP. BP taken standing after toilet use;101 /57, after gait, (sitting) 115 /64 M5 PT-IP Objective Assessments Start: 12/23/17 12:50 Freq: NEEDED Status: Active Protocol: Document 12/23/17 12:50 AB (Rec: 12/23/17 13:06 AB [id number]) Orientation Orientation/Cognition Level of Alertness Alert Orientation Name Age Place Situation Safety Awareness Decreased Safety Awareness Strength Lower Extremity Strength Assessment Bilaterally Impaired Muscle Tone Muscle Tone Location Right Severity of Tone Moderate Manifistation of Tone Resting Tremors Comments Muscle Tone Comments R arm/hand resting tremor M6 PT-IP Treatment Start: 12/23/17 12:50 Freq: NEEDED Status: Active Protocol: Document 12/23/17 12:50 AB (Rec: 12/23/17 13:06 AB [id number]) Physical Therapy Treatment Education Education Provided Safety M7 PT-IP Assessment and Plan Start: 12/23/17 12:50 Freq: NEEDED Status: Active Protocol: Document 12/26/17 11:49 TMS (Rec: 12/26/17 11:59 TMS [id number]) PT Summary Assessment and Plan Potential Rehabilitation Potential Good Status of Condition at Evaluation Evolving Summary Impairments Strength Balance Coordination Tone Cognition Bed Mobility Transfers Gait Activity Tolerance Frequency of Treatment Frequency Of Treatment Twice a Day Treatment Plan Physical Therapy Treatment Plan Bed Mobility Training Transfer Training Gait Training Therapeutic Exercise Balance Retraining Hot or Cold Pack Neuromuscular Re-ed Coordination Retraining Manual Therapy Other Recommendations and Next Treatment Continue to progress balance, Focus gait, strength. Check Orthostatic BP Recommendations To Nursing Amount of Assist Needed 2 Person Assist Discharge Recommendations PT Discharge Recommendations SNF Rehab
--- NOTE | 2017-12-26 12:28 | CM.DPC ---
ARP Ongoing: Met with patient briefly and referred him to his attending nurse Laurie, as he wanted to know, Who is in charge here? and what is the plan? Laurie admitted that patient gets fixated on certain topics. ARP, patient and his Fay discussed these issues at length yesterday. Spouse is not in room currently, but should arrive later today. She appeared fully aware of the plan as we discussed yesterday: to have a stay at [facility] to ensure safety and fall prevention, as he needs 24-hr supervision r/t very high fall risk. Contacts: Received phone call from Jovanna at [facility] this morning with concerns about patient's Parkinson's meds, nonformulary, Rytary and Dorxidopa. She stated that they will not be able to get these meds, too costly, and further concern that one was a NEW medication. Assured her I would speak with Dr. Arriaga about this. Later spoke with Dr. Arriaga who assured [facility] that these are not new meds, and that they have been working with his usual home meds in different dosages to try to find stability and lessening of orthostatic hypotension issues. Talked with nurse Sullivan about these same meds, and she stated they have been using patient's OWN meds from home, so he should be able to do this while at [facility]. Contacted: Left VM messg for Jovanna at [facility], informing that patient's PD meds are those from home that he has typically been taking, only dosages have been changed. So he should be able to bring those same meds to [facility] for their dispensing once he is discharged. Also informed her that per discussion with Dr. Arriaga this morning, [facility] informed him that [facility] male bed may be available on Wednesday, so he may plan to d/c patient tomorrow pending pt stability and bed availability. Asked her to f/u with [facility] in on Wednesday about this. P: To d/c to [facility] when medically stable and when room is available, likely Wed, 12/27. Have kept in touch with [facility] Admin Jovanna on this matter. Needs ongoing follow up, assure bed availability. Heena Mcdonough RN
--- NOTE | 2017-12-26 16:01 | PT.IPTN ---
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 (12/23/17) Physical Therapy Treatment Note M2 PT-IP Current Condition Start: 12/23/17 12:50 Freq: NEEDED Status: Active Protocol: Document 12/26/17 15:52 TMS (Rec: 12/26/17 16:01 TMS [id number]) Physical Therapy Current Condition Current Condition Evaluation Date 12/23/17 Treatment Diagnosis GLF; difficulty in walking Onset Date 12/22/17 Precautions Other Precautions orthostatic hypotension M3 PT-IP Subjective Start: 12/23/17 12:50 Freq: NEEDED Status: Active Protocol: Document 12/26/17 15:52 TMS (Rec: 12/26/17 16:01 TMS [id number]) Subjective Physical Therapy Visit Type Type Treatment Note Visit Start Time 15:00 Visit Stop Time 15:30 Total Visit Minutes 30 Number of PLANT SCIENCE PROFESSOR Visits 2 Physical Therapy Visit Comments Patient Comments Pt. sitting in chair. Initially (13:30) BP taken in sittin/59, then standin/51. Treatment held until later in PM. M4 PT-IP Mobility and Gait Start: 12/23/17 12:50 Freq: NEEDED Status: Active Protocol: Document 12/26/17 15:52 TMS (Rec: 12/26/17 16:01 TMS [id number]) PT-Bed Mobility Assessment Sit to Supine Sit to Supine Standby Assistance PT-Transfer Assessment Sit to and From Stand Sit to and from Stand Minimal Assistance Use of Upper Extremities Equipment Transfer Assistive Device Gait Belt Front Wheeled Walker Gait Assessment Gait Gait Assistance Required: Contact Guard Assist Distance (Feet) (feet) 220 Able to Maintain Weight Bearing Status Yes During Gait Assistive Devices Assistive Device Gait Belt Front Wheeled Walker Orthotic/Prosthetic Devices or Brace: No Gait Deviations General Gait Pattern Decreased Stride Length Decreased Feet Clearance Flexed Trunk Factors Limiting Gait Function Factors Limiting Gait Function Decreased Activity Tolerance Decreased Strength Poor Balance Poor Safety Awareness Comments Gait Comments W.C. followed pt. for safety with gait. Better stability with gait this PM. BP sitting; 139/68, standing; 94/58, sitting after gait; 138/69 M5 PT-IP Objective Assessments Start: 12/23/17 12:50 Freq: NEEDED Status: Active Protocol: Document 12/23/17 12:50 AB (Rec: 12/23/17 13:06 AB [id number]) Orientation Orientation/Cognition Level of Alertness Alert Orientation Name Age Place Situation Safety Awareness Decreased Safety Awareness Strength Lower Extremity Strength Assessment Bilaterally Impaired Muscle Tone Muscle Tone Location Right Severity of Tone Moderate Manifistation of Tone Resting Tremors Comments Muscle Tone Comments R arm/hand resting tremor M6 PT-IP Treatment Start: 12/23/17 12:50 Freq: NEEDED Status: Active Protocol: Document 12/23/17 12:50 AB (Rec: 12/23/17 13:06 AB [id number]) Physical Therapy Treatment Education Education Provided Safety M7 PT-IP Assessment and Plan Start: 12/23/17 12:50 Freq: NEEDED Status: Active Protocol: Document 12/26/17 15:52 TMS (Rec: 12/26/17 16:01 TMS [id number]) PT Summary Assessment and Plan Potential Rehabilitation Potential Good Summary Impairments Strength Balance Coordination Tone Cognition Bed Mobility Transfers Gait Activity Tolerance Assessment Summary No complaints of dizziness with gait this PM but BP does drop with standing. Pt. very motivated to walk. Frequency of Treatment Frequency Of Treatment Twice a Day Treatment Plan Other Recommendations and Next Treatment Continue to progress balance, Focus gait, strength. Check Orthostatic BP Recommendations To Nursing Amount of Assist Needed 2 Person Assist Discharge Recommendations PT Discharge Recommendations SNF Rehab
[2017-12-27] VITALS (12 sets, daily range): BP systolic 67–153; BP diastolic 7–76; PULSE 59–93; RESP 16–20; TEMP 36.2–36.8; O2SAT 94–99
--- NOTE | 2017-12-27 08:11 | CM.DPC ---
Addendum entered by Cari Up LPN 12/27/17 12:52: [facility]/Jovanna did call back to say that no bed would be available today. She does have multiple d/cs tomorrow and says she can assure [facility] that a bed would be available for pt by tomorrow afternoon. Discussed same with MIGUEL Abrams/hospitalist and agreed appropriate to keep pt until tomorrow. [facility] was updated as were pt and Fay when she arrived at noon as planned. P: [facility] tomorrow. Updated PASRR was faxed today to [facility] in prep for the d/c. Original Note: Addendum entered by Cari Up LPN 12/27/17 08:32: Spoke with Fay and updated her re d/c issues. She will be here at 1200 and the discussion will continue. Original Note: DCP: continued: Ava again received, EMR reviewed, spoke with JOHN/Jovanna. She reports that all is ok in terms of acceptance of pt as long as is bringing in the 2 Parkinson's medications from home (as discussed with DCP Heena over weekend). However, she states the facility is full, may have an opening this afternoon or tomorrow (dependent on a d/c of a resident who will go home with hospice care). Will check in with hospitalist today and speak with Fay re options. Jovanna does say she should know more about 1100 today.
[2017-12-27] MEDS: DROXIDOPA 300 MG 300 EACH PO ×3 (08:53→17:33)
[2017-12-27] MEDS: CARBIDOPA LEVODOPA 4 EACH PO ×4 (08:54→21:35)
[2017-12-27] MEDS: DONEPEZIL 5 MG TABLET 10 MG PO (08:55)
[2017-12-27] MEDS: MIDODRINE HCL 5 MG TABLET 10 MG PO ×3 (08:55→17:33)
[2017-12-27] MEDS: FLUDROCORTISONE 0.1 MG TABLET PO (08:56)
[2017-12-27] MEDS: SERTRALINE 50 MG TABLET 100 MG PO (08:56)
[2017-12-27] MEDS: MOMETASONE 120 SPRAY/17 GM NASAL SPRAY NASAL ×2 (08:56→21:35)
[2017-12-27] MEDS: POTASSIUM CHLORIDE 20 MEQ TAB PO ×4 (08:56→21:35)
--- NOTE | 2017-12-27 09:22 | PM.PN.1 ---
Subjective Date Patient Seen: 12/27/17 Time Patient Seen: 09:22 Interval history: Patient states he is feeling a little bit stronger today. He continues to be somewhat dizzy upon standing and requires assistance with walking. Exam Vital Signs (past 8 hours): Vital Signs - 8 hr 12/27/17 03:40 12/27/17 03:50 12/27/17 07:30 Temperature 97.1 F L 97.9 F Pulse Rate 63 Pulse Rate [Orthostatic Lying] 72 Pulse Rate [Orthostatic Sitting] 80 Pulse Rate [Orthostatic Standing] 85 Respiratory Rate 18 Blood Pressure 131/71 H Blood Pressure [Orthostatic Lying] 117/73 Blood Pressure [Orthostatic Sitting] 102/58 L Blood Pressure [Orthostatic Standing] 67/46 L Pulse Oximetry 98 97 12/27/17 08:48 Temperature Pulse Rate Pulse Rate [Orthostatic Lying] Pulse Rate [Orthostatic Sitting] Pulse Rate [Orthostatic Standing] Respiratory Rate Blood Pressure Blood Pressure [Orthostatic Lying] Blood Pressure [Orthostatic Sitting] Blood Pressure [Orthostatic Standing] Pulse Oximetry 95 Pulse Oximetry 95 Oxygen Delivery Method Room Air Oxygen Flow Rate 0 Const General: cooperative, comfortable, well developed and well hydrated Nutritional Appearance: average body habitus Orientation: alert, awake and oriented x3 HENMT Head: normal to inspection Ears: hearing grossly normal bilaterally Nose: external nose normal Face and sinus: normal facial exam Mouth: oral mucosae normal Eyes General: appearance normal, both eyes and all related structures Pupils: PERRL Neck Neck: normal visual inspection Chest Chest: normal inspection of the chest Resp Effort & Inspection: normal respiratory effort and able to speak in complete sentences Auscultation: clear to auscultation bilaterally Cardio Rate: regular rate Heart Sounds: S1 normal and S2 normal GI Inspection: normal to inspection Palpation: soft Auscultation: normal bowel sounds Other: Denies dysuria Back/Spine/Pelvis Back: normal to inspection Skin General: no rashes or lesions noted Neuro General: alert, awake and oriented x3 Cranial Nerves: CN's II-XI intact bilaterally Cognition: normal cognition Speech: speech normal Motor: strength abnormal (Decreased strength noted in right arm and right leg. Unchanged from previous past history.) Extrem Other: Various bruising throughout. No dependent edema. Psych Appearance: grossly normal Mental Status: mental status grossly normal Speech and Movement: speech and movement normal Mood: congruent mood Affect: normal affect Attitude: cooperative Thought Process: normal Thought Content: normal Judgment: judgment good Objective Labs Result Diagrams: 12/22/17 19:11 12/22/17 19:11 Assessment & Plan Plan: 1. Orthostatic hypotension secondary to autonomic insufficiency from his Parkinson's. This is become debilitating to him he cannot stand up without getting dizzy every time we do orthostatic vitals on him his blood pressure drops. Clinically he has improved and the readings on the orthostatic vitals show improvement mildly. Seems to be doing better today. Long-term he will need to be seen by his Parkinson's specialist for further evaluation and treatment of this problem. He has a scheduled appointment at this time. We will continue to work with him via PT to the point where he can get and walk without stability compromise. He will need his compression stockings on during the day and while ambulating. 2. History of coronary artery disease clinically noncontributory. Echo shows 55% ejection fraction. No ST changes on EKG. 3. Code status patient desires to be DNR 4. Transfer to [facility] in [facility].m[facility] when bed available. Quality VTE Deep Vein Thrombosis/Pulmonary Embolism Present on Admission: No
--- NOTE | 2017-12-27 09:26 | P.PN_ITS ---
Subjective Date Patient Seen: 12/27/17 Time Patient Seen: 09:22 Interval history: Patient states he is feeling a little bit stronger today. He continues to be somewhat dizzy upon standing and requires assistance with walking. Exam Vital Signs (past 8 hours): Vital Signs - 8 hr 3 12/27/17 03:40 12/27/17 03:50 12/27/17 07:30 Temperature 97.1 F L 97.9 F Pulse Rate 63 Pulse Rate [Orthostatic Lying] 72 Pulse Rate [Orthostatic Sitting] 80 Pulse Rate [Orthostatic Standing] 85 Respiratory Rate 18 Blood Pressure 131/71 H Blood Pressure [Orthostatic Lying] 117/73 Blood Pressure [Orthostatic Sitting] 102/58 L Blood Pressure [Orthostatic Standing] 67/46 L Pulse Oximetry 98 97 3 12/27/17 08:48 Temperature Pulse Rate Pulse Rate [Orthostatic Lying] Pulse Rate [Orthostatic Sitting] Pulse Rate [Orthostatic Standing] Respiratory Rate Blood Pressure Blood Pressure [Orthostatic Lying] Blood Pressure [Orthostatic Sitting] Blood Pressure [Orthostatic Standing] Pulse Oximetry 95 Pulse Oximetry 95 Oxygen Delivery Method Room Air Oxygen Flow Rate 0 Const General: cooperative, comfortable, well developed and well hydrated Nutritional Appearance: average body habitus Orientation: alert, awake and oriented x3 HENMT Head: normal to inspection Ears: hearing grossly normal bilaterally Nose: external nose normal Face and sinus: normal facial exam Mouth: oral mucosae normal Eyes General: appearance normal, both eyes and all related structures Pupils: PERRL Neck Neck: normal visual inspection Chest Chest: normal inspection of the chest Resp Effort & Inspection: normal respiratory effort and able to speak in complete sentences Auscultation: clear to auscultation bilaterally Cardio Rate: regular rate Heart Sounds: S1 normal and S2 normal GI Inspection: normal to inspection Palpation: soft Auscultation: normal bowel sounds Other: Denies dysuria Back/Spine/Pelvis Back: normal to inspection Skin General: no rashes or lesions noted Neuro General: alert, awake and oriented x3 Cranial Nerves: CN's II-XI intact bilaterally Cognition: normal cognition Speech: speech normal Motor: strength abnormal (Decreased strength noted in right arm and right leg. Unchanged from previous past history.) Extrem Other: Various bruising throughout. No dependent edema. Psych Appearance: grossly normal Mental Status: mental status grossly normal Speech and Movement: speech and movement normal Mood: congruent mood Affect: normal affect Attitude: cooperative Thought Process: normal Thought Content: normal Judgment: judgment good Objective Labs Result Diagrams: 12/22/17 19:11 12/22/17 19:11 Assessment & Plan Plan: 1. Orthostatic hypotension secondary to autonomic insufficiency from his Parkinson's. This is become debilitating to him he cannot stand up without getting dizzy every time we do orthostatic vitals on him his blood pressure drops. Clinically he has improved and the readings on the orthostatic vitals show improvement mildly. Seems to be doing better today. Long-term he will need to be seen by his Parkinson's specialist for further evaluation and treatment of this problem. He has a scheduled appointment at this time. We will continue to work with him via PT to the point where he can get and walk without stability compromise. He will need his compression stockings on during the day and while ambulating. 2. History of coronary artery disease clinically noncontributory. Echo shows 55% ejection fraction. No ST changes on EKG. 3. Code status patient desires to be DNR 4. Transfer to half-way facility in a.m. when bed available. Quality VTE Deep Vein Thrombosis/Pulmonary Embolism Present on Admission: No
--- NOTE | 2017-12-27 10:27 | PT.IPTN ---
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 (12/23/17) Physical Therapy Treatment Note M2 PT-IP Current Condition Start: 12/23/17 12:50 Freq: NEEDED Status: Active Protocol: Document 12/26/17 15:52 TMS (Rec: 12/26/17 16:01 TMS [id number]) Physical Therapy Current Condition Current Condition Evaluation Date 12/23/17 Treatment Diagnosis GLF; difficulty in walking Onset Date 12/22/17 Precautions Other Precautions orthostatic hypotension M3 PT-IP Subjective Start: 12/23/17 12:50 Freq: NEEDED Status: Active Protocol: Document 12/27/17 10:18 RS (Rec: 12/27/17 10:22 RS [id number]) Subjective Physical Therapy Visit Type Type Treatment Note Visit Start Time 09:50 Visit Stop Time 10:18 Total Visit Minutes 28 Physical Therapy Visit Comments Patient Comments Pt reports doing well. At end of session pt says it feels like his legs got a work out. Therapy Pain Assessment Pain When Pain Assessed During Mobility Pain Present Pain Present Denied Pain M4 PT-IP Mobility and Gait Start: 12/23/17 12:50 Freq: NEEDED Status: Active Protocol: Document 12/27/17 10:18 RS (Rec: 12/27/17 10:22 RS [id number]) PT-Transfer Assessment Sit to and From Stand Sit to and from Stand Contact Guard Assistance 1 Person Assistance Use of Upper Extremities Equipment Transfer Assistive Device Gait Belt Front Wheeled Walker Comments Mobility Comments Pt needing verbal cues to scoot forward to edge of chair prior to standing up. Before this pt tried to stand up from deep in the chair and could not get weight far enough forward to be able to stand all the way up without assistance. Gait Assessment Gait Gait Assistance Required: Contact Guard Assist Distance (Feet) (feet) 212 Assistive Devices Assistive Device Gait Belt Front Wheeled Walker Comments Gait Comments continue to use a wheelchair follow for walking outside of the room. M5 PT-IP Objective Assessments Start: 12/23/17 12:50 Freq: NEEDED Status: Active Protocol: Document 12/23/17 12:50 AB (Rec: 12/23/17 13:06 AB [id number]) Orientation Orientation/Cognition Level of Alertness Alert Orientation Name Age Place Situation Safety Awareness Decreased Safety Awareness Strength Lower Extremity Strength Assessment Bilaterally Impaired Muscle Tone Muscle Tone Location Right Severity of Tone Moderate Manifistation of Tone Resting Tremors Comments Muscle Tone Comments R arm/hand resting tremor M6 PT-IP Treatment Start: 12/23/17 12:50 Freq: NEEDED Status: Active Protocol: Document 12/27/17 10:22 RS (Rec: 12/27/17 10:26 RS [id number]) Physical Therapy Treatment Other Treatments Other Treatment Performed Performed DGI/physical dual- task activities while walking with definite slowing and decline in gait quality, however, no additional physical assist was needed. M7 PT-IP Assessment and Plan Start: 12/23/17 12:50 Freq: NEEDED Status: Active Protocol: Document 12/27/17 10:22 RS (Rec: 12/27/17 10:26 [email or web address]) PT Summary Assessment and Plan Potential Rehabilitation Potential Good Status of Condition at Evaluation Evolving Summary Impairments Strength Balance Coordination Tone Cognition Bed Mobility Transfers Gait Activity Tolerance Progress Towards Goals Slow Progress due to Medical Issues Assessment Summary Pt able to do more activity while up in standing without any abnormal reaction. Pt continues to slowly improve but still needs SNF once medically ready. Frequency of Treatment Frequency Of Treatment Twice a Day Treatment Plan Physical Therapy Treatment Plan Bed Mobility Training Transfer Training Gait Training Therapeutic Exercise Balance Retraining Hot or Cold Pack Neuromuscular Re-ed Coordination Retraining Manual Therapy Recommendations To Nursing Amount of Assist Needed 2 Person Assist Discharge Recommendations PT Discharge Recommendations SNF Rehab
[2017-12-27] MEDS: [UNRECOGNIZED DRUG - OTHER] 1 EACH PO (13:52)
--- NOTE | 2017-12-27 16:31 | PT.IPTN ---
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 (12/23/17) Physical Therapy Treatment Note M2 PT-IP Current Condition Start: 12/23/17 12:50 Freq: NEEDED Status: Active Protocol: Document 12/27/17 16:17 TMS (Rec: 12/27/17 16:30 TMS [id number]) Physical Therapy Current Condition Current Condition Evaluation Date 12/23/17 Treatment Diagnosis GLF; difficulty in walking Onset Date 12/22/17 Precautions Other Precautions orthostatic hypotension M3 PT-IP Subjective Start: 12/23/17 12:50 Freq: NEEDED Status: Active Protocol: Document 12/27/17 16:17 TMS (Rec: 12/27/17 16:30 TMS [id number]) Subjective Physical Therapy Visit Type Type Treatment Note Visit Start Time 15:45 Visit Stop Time 16:05 Total Visit Minutes 20 Number of AUTO WASH BUFFER Visits 1 Physical Therapy Visit Comments Patient Comments ACCOUNT CONTACT ASSOCIATE states pt. was asking to walk earlier, pt. without complaints. M4 PT-IP Mobility and Gait Start: 12/23/17 12:50 Freq: NEEDED Status: Active Protocol: Document 12/27/17 16:17 TMS (Rec: 12/27/17 16:30 TMS [id number]) PT-Bed Mobility Assessment Supine to Sit Supine to Sit Standby Assistance Sit to Supine Sit to Supine Standby Assistance Scooting Scooting to Edge of Bed Standby Assistance PT-Transfer Assessment Sit to and From Stand Sit to and from Stand Contact Guard Assistance Use of Upper Extremities Equipment Transfer Assistive Device Gait Belt Front Wheeled Walker Comments Mobility Comments Cues to scoot closer to edge. Cues to keep weight forward with sit>stand, needed CGA only with mobility. Gait Assessment Gait Gait Assistance Required: Contact Guard Assist Distance (Feet) (feet) 220 Able to Maintain Weight Bearing Status Yes During Gait Assistive Devices Assistive Device Gait Belt Front Wheeled Walker Gait Deviations General Gait Pattern Decreased Stride Length Decreased Feet Clearance Flexed Trunk Factors Limiting Gait Function Factors Limiting Gait Function Decreased Activity Tolerance Decreased Strength Poor Balance Poor Safety Awareness Comments Gait Comments continue to use a wheelchair follow for walking outside of the room. Head turns with gait without LOB. M5 PT-IP Objective Assessments Start: 12/23/17 12:50 Freq: NEEDED Status: Active Protocol: Document 12/23/17 12:50 AB (Rec: 12/23/17 13:06 AB [id number]) Orientation Orientation/Cognition Level of Alertness Alert Orientation Name Age Place Situation Safety Awareness Decreased Safety Awareness Strength Lower Extremity Strength Assessment Bilaterally Impaired Muscle Tone Muscle Tone Location Right Severity of Tone Moderate Manifistation of Tone Resting Tremors Comments Muscle Tone Comments R arm/hand resting tremor M6 PT-IP Treatment Start: 12/23/17 12:50 Freq: NEEDED Status: Active Protocol: Document 12/27/17 10:22 RS (Rec: 12/27/17 10:26 RS [id number]) Physical Therapy Treatment Other Treatments Other Treatment Performed Performed DGI/physical dual- task activities while walking with definite slowing and decline in gait quality, however, no additional physical assist was needed. M7 PT-IP Assessment and Plan Start: 12/23/17 12:50 Freq: NEEDED Status: Active Protocol: Document 12/27/17 16:17 TMS (Rec: 12/27/17 16:30 TMS [id number]) PT Summary Assessment and Plan Potential Rehabilitation Potential Good Status of Condition at Evaluation Evolving Summary Impairments Strength Balance Coordination Tone Cognition Bed Mobility Transfers Gait Activity Tolerance Assessment Summary BP more stable this PM, no complaints of dizziness. Supine; 144/76 Sitting; 144/80 Standing; 113/54 Frequency of Treatment Frequency Of Treatment Twice a Day Treatment Plan Physical Therapy Treatment Plan Bed Mobility Training Transfer Training Gait Training Therapeutic Exercise Balance Retraining Recommendations To Nursing Amount of Assist Needed 2 Person Assist Discharge Recommendations PT Discharge Recommendations SNF Rehab
[2017-12-28 05:00] VITALS: BP 102/62; BP 134/73; BP 82/49; PULSE 65; PULSE 75
--- NOTE | 2017-12-28 06:07 | PC.NURSE ---
Noc Note: Pt continues to have low BP with standing and ambulation, reported mild lightheadedness with up to the bathroom. Stated that it is better than it has been. Denies pain, nausea and SOB. 1PA with FWW to AMB to the BR.
[2017-12-28 07:30] VITALS: BP 116/66; BP 136/75; BP 79/50; PULSE 65; PULSE 70
[2017-12-28] MEDS: DROXIDOPA 300 MG 300 EACH PO ×2 (07:54→11:42)
[2017-12-28] MEDS: MIDODRINE HCL 5 MG TABLET 10 MG PO ×2 (07:55→11:42)
[2017-12-28 08:19] VITALS: BP 136/75; PULSE 65; RESP 18; TEMP 36.8; O2SAT 98
[2017-12-28] MEDS: CARBIDOPA LEVODOPA 4 EACH PO ×2 (08:31→12:17)
[2017-12-28] MEDS: FLUDROCORTISONE 0.1 MG TABLET PO (08:31)
[2017-12-28] MEDS: DONEPEZIL 5 MG TABLET 10 MG PO (08:31)
[2017-12-28] MEDS: POTASSIUM CHLORIDE 20 MEQ TAB PO ×2 (08:32→12:17)
[2017-12-28] MEDS: SERTRALINE 50 MG TABLET 100 MG PO (08:32)
[2017-12-28] MEDS: MOMETASONE 120 SPRAY/17 GM NASAL SPRAY NASAL (08:34)
--- NOTE | 2017-12-28 10:00 | PM.DS.1 ---
History of Present Illness Date Patient Seen: 12/28/17 Time Patient Seen: 10:01 Chief complaint: GLF Narrative: Meño Alvarado is a 77 year old male with history of Parkinson's disease and autonomic dysfunction with orthostatic hypotension from Parkinson's. He has a history of multiple falls and has been under the care of a Parkinson's specialist in [place] in the past it sounds like he has not seen that physician for over a year due to difficulty getting down there. Patient states he was seen by a neurologist in [place] in since then but did not feel they were helping his problems. He is managed by his primary care physician in [place] who sounds like it is overseeing the Parkinson's treatment primarily at this point. The patient relates that yesterday he has fell twice 1 time using his walker he says that he gets dizzy and unbalanced and unable to continue. He has multiple bruises and bumps all over his arms and legs from previous falls. He is becoming basically unmanageable at home due to his frequent falling. He was evaluated in the emergency department last night with x-rays nothing was fractured no bony abnormalities were noted. He denies any chest pain or pressure prior to him falling. He does note his heart beating irregular usually when he gets these episodes however. Discharge Providers Date of admission: 12/23/17 12:30 Consults: 12/23/17 08:36 Consult to Physical Therapy Evaluate & Treat Comment: hx parkinsons multiple falls. assess balance Physician Instructions: Evaluate and Treat Discharge provider: MIGUEL Aguero Summary Discharge Diagnosis: Orthostatic hypotension related to Parkinson's disease. Hospital Course: This is a summary of a 5 day hospitalization for this 77-year-old male patient with Parkinson's disease and autonomic dysfunction with orthostatic hypotension. He slowly improved during this hospitalization after increasing his Droxidopa to 300 mg p.o. t.i.d.. Today his orthostatic changes were less than in previous assessments. His systolic blood pressure went from 119-113-92. Pulse is not significantly changed during lying sitting and standing pressure checks. Heart rhythm regular. Patient has most significant changes in his orthostatic pressures upon wakening after being in bed most of the night. His neurogenic orthostatic hypotension may continue to get worse as the parkinsonian disease process progresses. He will benefit from additional management of his Parkinson's medications to reduce orthostatic changes. He is being transferred to a fdc facility today for continued physical therapy and occupational therapy. He will need to be followed up in January with his Parkinson's DrNavneet ch in [place] as well as Dr. Almaraz, his primary care provider when discharged from the fdc facility. Exam Vital Signs (past 8 hours): Vital Signs - 8 hr 12/28/17 05:00 12/28/17 07:30 12/28/17 08:19 Temperature 98.2 F Pulse Rate 65 Pulse Rate [Orthostatic Lying] 65 65 Pulse Rate [Orthostatic Sitting] 75 70 Pulse Rate [Orthostatic Standing] 70 Respiratory Rate 18 Blood Pressure 136/75 H Blood Pressure [Orthostatic Lying] 134/73 H 136/75 H Blood Pressure [Orthostatic Sitting] 102/62 116/66 Blood Pressure [Orthostatic Standing] 82/49 L 79/50 L Pulse Oximetry 98 Pulse Oximetry 98 Oxygen Delivery Method Room Air Oxygen Flow Rate 0 Narrative Exam Narrative: General: cooperative, comfortable, well developed and well hydrated. States he is feeling less lightheaded today. Nutritional Appearance: average body habitus Orientation: alert, awake and oriented x3 HENMT Head: normal to inspection Ears: hearing grossly normal bilaterally Nose: external nose normal Face and sinus: normal facial exam Mouth: oral mucosae normal Eyes General: appearance normal, both eyes and all related structures Pupils: PERRL Neck Neck: normal visual inspection Chest Chest: normal inspection of the chest Resp Effort & Inspection: normal respiratory effort and able to speak in complete sentences Auscultation: clear to auscultation bilaterally Cardio Rate: regular rate Heart Sounds: S1 normal and S2 normal GI Inspection: normal to inspection Palpation: soft Auscultation: normal bowel sounds Other: Denies dysuria Back/Spine/Pelvis Back: normal to inspection Skin General: no rashes or lesions noted. Neuro General: alert, awake and oriented x3 Cranial Nerves: CN's II-XI intact bilaterally Cognition: normal cognition Speech: speech normal Motor: strength abnormal (Decreased strength noted in right arm and right leg. Unchanged from previous past history.) Significant amount of cogwheeling noted in right upper extremity. Extrem Other: Various bruising throughout. No dependent edema. Psych Appearance: grossly normal Mental Status: mental status grossly normal Speech and Movement: speech and movement normal Mood: congruent mood Affect: normal affect Attitude: cooperative Thought Process: normal Thought Content: normal Judgment: judgment good Objective Labs Result Diagrams: 12/22/17 19:11 12/22/17 19:11 Discharge Plan Discharge Plan Patient Disposition: SNF Transfer to: [facility] Under care of provider: Dr. Catalan Transportation: Wheelchair Discharge comment: Patient will need continued occupational physical therapy. I certify the postop hospital fdc care is medically necessary on a continuing basis for any conditions for which he/ she received care during this hospitalization.: Yes The receiving facility has agreed to accept transfer and provide medical treatment.: Yes Discharge Health Status Precautions: [place] Provider Discharge Instructions Diet: Regular, Low-fat, Low-sodium and Low-cholesterol Diet comment: Heart healthy/cardiac diet Activity: Encouraged patient to be out of bed most of the day. Ambulate at least q.i.d.. Allowed to sit at the edge of bed for least 5 min prior to walking. With walker, gait belt and medical receptionist medical assistant. Patient should have compression stockings applied before sitting or standing. Oxygen: Room air [facility] Rehab type: Physical therapy and Occupational therapy Discharge Data Attending Provider: Crescencio Carrasquillo Admit Date/Time: 12/23/17 12:30 Quality VTE Deep Vein Thrombosis/Pulmonary Embolism Present on Admission: No
--- NOTE | 2017-12-28 10:03 | P.DS_ITS ---
History of Present Illness Date Patient Seen: 12/28/17 Time Patient Seen: 10:01 Chief complaint: GLF Narrative: Meño Alvarado is a 77 year old male with history of Parkinson's disease and autonomic dysfunction with orthostatic hypotension from Parkinson' s. He has a history of multiple falls and has been under the care of a Parkinson's specialist in [place] in the past it sounds like he has not seen that physician for over a year due to difficulty getting down there. Patient states he was seen by a neurologist in [place] in since then but did not feel they were helping his problems. He is managed by his primary care physician in [place] who sounds like it is overseeing the Parkinson's treatment primarily at this point. The patient relates that yesterday he has fell twice 1 time using his walker he says that he gets dizzy and unbalanced and unable to continue. He has multiple bruises and bumps all over his arms and legs from previous falls. He is becoming basically unmanageable at home due to his frequent falling. He was evaluated in the emergency department last night with x-rays nothing was fractured no bony abnormalities were noted. He denies any chest pain or pressure prior to him falling. He does note his heart beating irregular usually when he gets these episodes however. Discharge Providers Date of admission: 12/23/17 12:30 Consults: 12/23/17 08:36 Consult to Physical Therapy Evaluate & Treat Comment: hx parkinsons multiple falls. assess balance Physician Instructions: Evaluate and Treat Discharge provider: MIGUEL Aguero Summary Discharge Diagnosis: Orthostatic hypotension related to Parkinson's disease. Hospital Course: This is a summary of a 5 day hospitalization for this 77-year- old male patient with Parkinson's disease and autonomic dysfunction with orthostatic hypotension. He slowly improved during this hospitalization after increasing his Droxidopa to 300 mg p.o. t.i.d.. Today his orthostatic changes were less than in previous assessments. His systolic blood pressure went from 119-113-92. Pulse is not significantly changed during lying sitting and standing pressure checks. Heart rhythm regular. Patient has most significant changes in his orthostatic pressures upon wakening after being in bed most of the night. His neurogenic orthostatic hypotension may continue to get worse as the parkinsonian disease process progresses. He will benefit from additional management of his Parkinson's medications to reduce orthostatic changes. He is being transferred to a long term facility today for continued physical therapy and occupational therapy. He will need to be followed up in January with his Parkinson's Dr. ch in [place] as well as Dr. Almaraz, his primary care provider when discharged from the long term facility. Exam Vital Signs (past 8 hours): Vital Signs - 8 hr 3 12/28/17 05:00 12/28/17 07:30 12/28/17 08:19 Temperature 98.2 F Pulse Rate 65 Pulse Rate [Orthostatic Lying] 65 65 Pulse Rate [Orthostatic Sitting] 75 70 Pulse Rate [Orthostatic Standing] 70 Respiratory Rate 18 Blood Pressure 136/75 H Blood Pressure [Orthostatic Lying] 134/73 H 136/75 H Blood Pressure [Orthostatic Sitting] 102/62 116/66 Blood Pressure [Orthostatic Standing] 82/49 L 79/50 L Pulse Oximetry 98 Pulse Oximetry 98 Oxygen Delivery Method Room Air Oxygen Flow Rate 0 Narrative Exam Narrative: General: cooperative, comfortable, well developed and well hydrated. States he is feeling less lightheaded today. Nutritional Appearance: average body habitus Orientation: alert, awake and oriented x3 HENMT Head: normal to inspection Ears: hearing grossly normal bilaterally Nose: external nose normal Face and sinus: normal facial exam Mouth: oral mucosae normal Eyes General: appearance normal, both eyes and all related structures Pupils: PERRL Neck Neck: normal visual inspection Chest Chest: normal inspection of the chest Resp Effort & Inspection: normal respiratory effort and able to speak in complete sentences Auscultation: clear to auscultation bilaterally Cardio Rate: regular rate Heart Sounds: S1 normal and S2 normal GI Inspection: normal to inspection Palpation: soft Auscultation: normal bowel sounds Other: Denies dysuria Back/Spine/Pelvis Back: normal to inspection Skin General: no rashes or lesions noted. Neuro General: alert, awake and oriented x3 Cranial Nerves: CN's II-XI intact bilaterally Cognition: normal cognition Speech: speech normal Motor: strength abnormal (Decreased strength noted in right arm and right leg. Unchanged from previous past history.) Significant amount of cogwheeling noted in right upper extremity. Extrem Other: Various bruising throughout. No dependent edema. Psych Appearance: grossly normal Mental Status: mental status grossly normal Speech and Movement: speech and movement normal Mood: congruent mood Affect: normal affect Attitude: cooperative Thought Process: normal Thought Content: normal Judgment: judgment good Objective Labs Result Diagrams: 12/22/17 19:11 12/22/17 19:11 Discharge Plan Discharge Plan Patient Disposition: SNF Transfer to: [facility] Under care of provider: Dr. Catalan Transportation: Wheelchair Discharge comment: Patient will need continued occupational physical therapy. I certify the postop hospital long term care is medically necessary on a continuing basis for any conditions for which he/ she received care during this hospitalization.: Yes The receiving facility has agreed to accept transfer and provide medical treatment.: Yes Discharge Health Status Precautions: [place] Provider Discharge Instructions Diet: Regular, Low-fat, Low-sodium and Low-cholesterol Diet comment: Heart healthy/cardiac diet Activity: Encouraged patient to be out of bed most of the day. Ambulate at least q.i.d.. Allowed to sit at the edge of bed for least 5 min prior to walking. With walker, gait belt and automobile mechanic assistant. Patient should have compression stockings applied before sitting or standing. Oxygen: Room air [facility] Rehab type: Physical therapy and Occupational therapy Discharge Data Attending Provider: Crescencio Carrasquillo Admit Date/Time: 12/23/17 12:30 Quality VTE Deep Vein Thrombosis/Pulmonary Embolism Present on Admission: No
--- NOTE | 2017-12-28 11:01 | PC.NURSE ---
Addendum entered by Nikole Spencer R.N. 12/28/17 13:31: TSF - report provided to Sofi at [facility], belongings packed, including his own medications from pharmacy and drawer, razor, toothbrush, dressed and tsf to , escorted by [facility] personnel with dc packet and script, accompanied by spouse. Original Note: AM NOTE - awakens slowly, has strong tremor rue when awake, speech is slow, responses appropriate, denies discomfort, assist x1 person up to dangle, then into br w/fww to void, pt states he can't use urinal in bed, does have some initial dizziness when up,bora po w/o coughing, ra 97%, hr 66, later am add'l orthostatic bps were done with Jose Alberto RIVERA at bedside and standing bp has been improving. some.
--- NOTE | 2017-12-28 11:05 | CM.DPC ---
Alerted by MIGUEL Abrams that pt is ok to d/c to [facility] today. He is working on completion of the snf orders. Spoke with Sofi/[facility]. Time set up for w/c transport at 1315. Will fax orders once completed. Have left a vm for Fay re specifics of the d/c today.
--- NOTE | 2017-12-28 12:11 | PT.IPTN ---
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 (12/23/17) Physical Therapy Treatment Note M2 PT-IP Current Condition Start: 12/23/17 12:50 Freq: NEEDED Status: Active Protocol: Document 12/27/17 16:17 TMS (Rec: 12/27/17 16:30 TMS [id number]) Physical Therapy Current Condition Current Condition Evaluation Date 12/23/17 Treatment Diagnosis GLF; difficulty in walking Onset Date 12/22/17 Precautions Other Precautions orthostatic hypotension M3 PT-IP Subjective Start: 12/23/17 12:50 Freq: NEEDED Status: Active Protocol: Document 12/28/17 12:10 GGD (Rec: 12/28/17 12:11 GGD [id number]) Subjective Physical Therapy Visit Type Type Patient Refusal Notes He states that he just got bed after being up a long time. He states he would like to rest. Frequency of Treatment Frequency Of Treatment Twice a Day Treatment Plan Physical Therapy Treatment Plan Bed Mobility Training Transfer Training Gait Training Therapeutic Exercise Balance Retraining Recommendations To Nursing Amount of Assist Needed 2 Person Assist Discharge Recommendations PT Discharge Recommendations SNF Rehab
== END 2017-12-28 13:34 | DRG 74 ==
LOC: ED 20:46 → AC 20:59
PROVIDERS: Admitting Provider Internal Medicine; Emergency Provider Emergency Medicine; Visit Provider Internal Medicine
DX: G90.8 Other disorders of autonomic nervous system (principal); G20 Parkinson's disease; I25.10 Atherosclerotic heart disease of native coronary artery without angina pectoris; Z91.81 History of falling; Z66 Do not resuscitate; M25.551 Pain in right hip; M54.9 Dorsalgia, unspecified
CPT/HCPCS: 36415; 36591; 72100; 73502; 80048; 83880; 84484; 85025; 93005; 93306; 97116; 97163; 97530; 99283; 99285; G0378

== ENCOUNTER 2018-10-01 09:44 | Emergency (ER) | payer MEDICARE, OTHER, SELFPAY ==
[2017-12-22 22:27] VITALS: BMI 24.3
[2018-10-01 10:03] VITALS: BP 110/60; PULSE 79; RESP 14; TEMP 36.5; O2SAT 98
--- NOTE | 2018-10-01 10:42 | PC.NURSE ---
per spouse and pt, with frequent falls in the last week, fallen 6 times, with hx of parkinsons, right arm worsening with weakness, bilateral lower legs worsening, unsteady on his feet. denies head injuries, mostly c/o right shoulder/neck/arm pain. pt arrived with multiple bandaid on the right arm, +distal cms intact. office services assistant strong and equal. dr espinoza at . cleared and removed cervical collar.
--- NOTE | 2018-10-01 10:51 | DI.CT.S_ITS ---
PROCEDURE: CT HEAD/BRAIN WO CON INDICATIONS: weakness on right side, longstanding, occs worse TECHNIQUE: Noncontrast 4.5 mm thick angled axial sections acquired from the foramen magnum to the vertex, with coronal and sagittal reformats. For radiation dose reduction, the following was used: automated exposure control, adjustment of mA and/or kV according to patient size. COMPARISON: None. FINDINGS: Image quality: Excellent. CSF spaces: Basal cisterns are patent. No extra-axial fluid collections. Ventricles are normal in size and shape. Brain: No midline shift. No intracranial masses or hemorrhage. Machado-white matter interface is normal. There is moderate diffuse cerebral and cerebellar volume loss. Bilateral basal ganglia calcifications are noted. There is moderate subcortical and periventricular white matter hypoattenuation with involvement of the nickie, which is nonspecific. Vascular calcifications are noted. Skull and face: Calvarium and visualized facial bones are intact, without suspicious lesions. Sinuses: Bilateral ethmoid sinus mucosal thickening. IMPRESSION: 1. No CT evidence of acute intracranial hemorrhage or large territorial infarct. 2. Moderate periventricular and subcortical white matter hypoattenuation with involvement of the nickie, which is nonspecific but can be seen with chronic microvascular ischemic changes or white matter disease. Consider MRI if there is continued clinical concern. Dictated by: Meño Boss M.D. on 10/01/2018 at 11:51 Approved by: Meño Boss M.D. on 10/01/2018 at 11:57
--- NOTE | 2018-10-01 10:51 | DI.CT.S_ITS ---
PROCEDURE: CT CERVICAL SPINE WO CON INDICATIONS: weakness right side, numb fingers, ? metastatics disease TECHNIQUE: Noncontrast 3 mm thick sections acquired from the skull base to the T4 level. Sagittal and coronal reformats were then constructed. For radiation dose reduction, the following was used: automated exposure control, adjustment of mA and/or kV according to patient size. COMPARISON: None. FINDINGS: Image quality: Excellent. Bones: Visualized superior ribs are intact. Moderate multilevel degenerative changes of the cervical spine, including at the atlantodens interval and craniocervical junction. There is an irregular lytic lesion within the posterior elements of C7. No other fractures or dislocations are identified. Overall alignment of the cervical spine remains intact. Soft tissues: Prevertebral soft tissues are normal in thickness. No paravertebral hematomas. No apical pneumothoraces. Calcified plaque of the vasculature noted. Increased number of nonenlarged lymph nodes in the right cervical chain, a nonspecific finding. IMPRESSION: Irregular lytic lesion of the posterior elements of C7, which would be compatible with metastatic disease in the appropriate clinical setting. Consider PET/CT if there is continued clinical concern for metastatic disease. Dictated by: Meño Boss M.D. on 10/01/2018 at 11:57 Approved by: Meño Boss M.D. on 10/01/2018 at 12:05
--- NOTE | 2018-10-01 10:51 | DI.RAD.S_ITS ---
PROCEDURE: XR LUMBAR SPINE 2-3V INDICATIONS: prostate ca, worsening back pain TECHNIQUE: 3 views of the lumbar spine were acquired. COMPARISON: [facility], CR, XR LUMBAR SPINE 2-3V, 12/22/2017, 18:35. FINDINGS: Bones: 5 lumbar type vertebral bodies are identified. There is straightening of the normal lumbar lordosis. No vertebral body compression fractures are identified. There is moderate multilevel degenerative change of the lumbar spine. Soft tissues: Calcified plaque of the abdominal aorta and branch vessels. Radiopaque seeds from prostate radiation therapy noted on lateral view. IMPRESSION: No acute fracture dislocation of the lumbar spine. Moderate multilevel degenerative changes of the lumbar spine are noted. Consider nuclear medicine bone scan or bone NaF PET/CT if there is continued clinical concern for metastatic disease. Dictated by: Meño Boss M.D. on 10/01/2018 at 12:05 Approved by: Meño Boss M.D. on 10/01/2018 at 12:08
--- NOTE | 2018-10-01 10:57 | ED_ITS ---
HPI - Fall General Chief Complaint: Fall Stated Complaint: Frequent falls, pain R shoulder/arm Time Seen by Provider: 10/01/18 10:25 Source: patient and family () Limitations: no limitations History of Present Illness HPI Narrative: This is a 78-year-old male who comes to the emergency department with complaint of multiple falls intermittently. Patient is complaining of pain in his neck and upper back and shoulders sometimes his hips. His states that he has chronic right-sided weakness but seemed a little bit worse occasiona lly. He sometimes has garbled speech but they also relate that to sometimes his Parkinson's. She is not sure if he is having TIAs or if it is just related to his Parkinson's symptoms. He has not had any fevers. He is not having any headache. He has had multiple falls in the past. They states that he does use a walker and uses it consistently but sometimes loses balance and tends to fall to the right side. This is been going on for a prolonged period of time. Occasionally has some chest pain or shortness of breath but none recently. He has not had any nausea no vomiting no other diarrhea or constipation symptoms today. He occasionally has some urinary continence. Patient has history of prostate cancer had brachytherapy and then would followed up with his physician with rising PSAs was told it is likely having recurrence but that there is nothing to do. His family is somewhat concerned about metastatic lesions to his prostate cancer returning. The patient does not take an aspirin or any blood thinners. He does have a history of cardiac stents remotely. Related Data Home Medications Medication Instructions Recorded Confirmed Lactobacillus acidophilus 1 cap PO DAILY 12/22/17 12/22/17 [Probiotic] carbidopa-levodopa [Rytary] 4 cap PO QID 12/22/17 12/22/17 donepezil 10 mg PO DAILY 12/22/17 12/22/17 doxylamine succinate 25 mg PO BEDTIME PRN 12/22/17 12/22/17 fludrocortisone 0.1 mg PO DAILY 12/22/17 12/22/17 folic acid-vit B6-vit B12 [Folbic] 1 tab PO DAILY 12/22/17 12/22/17 melatonin 5 mg PO BEDTIME PRN 12/22/17 12/22/17 midodrine 10 mg PO TID 12/22/17 12/22/17 potassium chloride 20 meq PO QID 12/22/17 12/22/17 sertraline 100 mg PO DAILY 12/22/17 12/22/17 Previous Rx's Medication Instructions Recorded droxidopa [droxidopa] 300 mg PO AC #60 tab 12/28/17 acetaminophen-codeine 1 tab PO Q4-6H PRN #10 tab 10/01/18 [Tylenol-Codeine #3] Allergies Allergy/AdvReac Type Severity Reaction Status Date / Time morphine AdvReac Intermediate Hallucinati Verified 12/22/17 20:11 ng Review of Systems Review of Systems ROS Unobtainable: All systems reviewed & are unremarkable except as noted in HPI and below Constitutional Denies chills, Denies fever(s), Reports frequent falls, Denies headache(s), Denies lethargy, Denies malaise, Reports poor appetite, Denies weakness and Reports weight loss (70# over 12 months) ENT Ears, Nose, Mouth, and Throat: Reports dizziness, Denies headache(s), Denies nasal congestion, Reports neck pain and Reports disequilibrium Cardiovascular Denies chest pain (sometimes, none currently), Denies diaphoresis, Denies syncope, Denies edema, Denies irregular heart rhythm, Denies lightheadedness, Denies palpitations, Denies dyspnea, Denies dyspnea on exertion and Denies orthopnea Respiratory Denies chest congestion, Denies cough, Denies pain on inspiration, Denies dyspnea, Denies dyspnea on exertion, Denies stridor and Denies wheezing Gastrointestinal Gastrointestinal: Denies abdominal pain, Denies melena, Denies hematochezia, Denies constipation, Denies diarrhea, Denies nausea and Denies vomiting Genitourinary Denies dysuria, Denies flank pain, Denies urinary frequency, Denies urinary hesitancy, Reports urinary incontinence (rarely) and Denies urinary urgency Musculoskeletal Reports as per HPI, Reports back pain, Reports arthralgias, Denies muscle weakness, Reports neck pain, Denies numbness, Reports radiating pain into limb (right arm) and Reports tingling (right fingers sometimes) Integumentary/Breasts Denies rash Neurologic Denies confusion, Reports dizziness, Denies syncope, Reports frequent falls, Denies headache(s), Reports focal weakness (right sided, for long time.), Denies numbness, Reports tingling (right fingers sometimes), Reports disequilibrium and Denies weakness Psychiatric Denies confusion Endocrine Denies palpitations Allergic/Immunologic Denies wheezing Exam Narrative Exam Narrative: GEN: Patient appears in mild distress. HEAD: No evidence of trauma, no raccoon/Schneider sign. NECK: Nontender, painless range of motion, trachea midline negative Nexus criteria, there is no midline tenderness, distracting injury, altered mental status, neuro deficit, recent EtOH. EYES: PERRLA, EOMI ENT: External inspection normal, trachea is midline, TM's are normal no hemotypanum, Nares are clear, no septal hematoma, no dental or oral injury, airway is normal and with normal occlusion, No bony tenderness RESP: Chest is nontender and has symmetric movement, no ecchymosis, breath sounds are normal no crackles, wheezes or rales CVS: Heart sounds are normal, no murmur noted, No JVD. ABG/GI: Nontender, soft, normal bowel sounds, no distention, no organomegaly, pelvic rock is negative. NEURO: Oriented AOx3, neuro is grossly intact, sensation and motor is normal all 4 extremities moving, cranial nerves II through XII are intact, GCS is 15 PSYCH: Normal mood and affect SKIN: Intact, warm and dry, no crepitus and without decubitus BACK: No CVA tenderness, no vertebral tenderness, no step-off's, no crepitus EXT: Atraumatic, hips are nontender, no pedal edema, normal color and temperature, normal range of motion of extremities with normal tendon exam, 2+ pulses in all four extremities Initial Vital Signs Initial Vital Signs: Vital Signs Temperature 97.7 F 10/01/18 10:03 Pulse Rate 79 10/01/18 10:03 Respiratory Rate 14 10/01/18 10:03 Blood Pressure 110/60 10/01/18 10:03 Pulse Oximetry 98 10/01/18 10:03 [facility] Medical History Coronary artery disease (Chronic) Insomnia (Chronic) Neurogenic orthostatic hypotension (Chronic) Parkinson disease (Chronic) Surgical History History of heart artery stent (Acute) Social History household members: spouse and children Smoking Status: Never smoker alcohol intake: former Social History household members: spouse and children Smoking Status: Never smoker alcohol intake: former Scores NIH Stroke Scale Level of Conciousness: Alert, keenly responsive Ask month/age: Answers both questions correctly. Open/close eyes, close hand: Performs both tasks correctly Best gaze horizontal: Normal Visual jimenez: No visual loss Facial palsy: Normal symetrical movement Left arm drift: No drift for full 10 sec Right arm drift: No drift for full 10 sec Left leg drift: No drift for full 10 sec Right leg drift: No drift for full 10 sec Limb ataxia: Present in one limb (able to complete but requires slightly more concentration) Sensory on face/arms/legs: Normal, no sensory loss Best language: No aphasia, normal Dysarthria: Normal Extinction or inattention: No abnormality Total NIH Stroke scale score: 1 Course Orders Ordered: ED Orders 10/01/18 10:51 CT cervical spine wo con Stat CT head/brain wo con Stat XR lumbar spine 2-3V Stat 10/01/18 11:32 EKG-12 Lead Stat 10/01/18 11:42 XR shoulder LT min 2V Stat 10/01/18 11:51 Complete Blood Count AUTO DIFF Stat Comprehensive Metabolic Panel Stat Partial Thromboplastin Time Stat Prothrombin Time INR Stat Troponin I Stat Discontinued Medications Acetaminophen/Codeine Phosphate (Tylenol #3) 1 tab PO NOW ONE Stop: 10/01/18 10:56 Last Admin: 10/01/18 11:37 Dose: 1 tab Sodium Chloride (Normal Saline 0.9%) 1,000 mls @ 150 mls/hr IV CONT LINDA Last Infusion: 10/01/18 15:53 Dose: 0 mls/hr Infusion: 10/01/18 14:38 Dose: 0 mls/hr Admin: 10/01/18 11:37 Dose: 150 mls/hr Vital Signs - 8 hr 10/01/18 14:50 10/01/18 15:00 Pulse Rate 46 L 68 Respiratory Rate 16 16 Blood Pressure [Right Arm] 170/70 H 169/90 H Pulse Oximetry 97 MDM - Fall Lab Data Attestation: I reviewed the patient's lab results. Result diagrams: 10/01/18 11:51 10/01/18 11:51 Lab Results 10/01/18 10/01/18 10/01/18 Range/Units 11:51 11:51 11:51 WBC 6.4 (4.5-11.0) X10^3/uL RBC 4.00 L (4.5-5.9) X10^6/uL Hgb 13.5 (13.5-17.5) g/dL Hct 40.3 L (41-53) % MCV 100.6 H (80-100) fL MCH 33.8 (26-34) PG MCHC 33.6 (30-36) % RDW 13.9 (11.6-14.8) % Plt Count 168 (150-400) X10^3/uL Neut % (Auto) 66.3 (50-75) % Lymph % (Auto) 22.7 L (25-40) % Cotton % (Auto) 6.3 (3-14) % Eos % (Auto) 3.8 (2-4) % Baso % (Auto) 0.9 (0-2) % Neut # (Auto) 4300 (1583-0186) /uL Lymph # (Auto) 1500 (9155-1221) /uL Cotton # (Auto) 400 (0-900) /uL Eos # (Auto) 200 (0-450) /uL Baso # (Auto) 100 (0-100) /uL PT 12.2 (10.1-12.7) SECONDS INR 1.1 (0.9-1.3) APTT 26 L (26.4-36.2) SECONDS Sodium 139 (137-145) mmol/L Potassium 3.6 (3.4-5.1) mmol/L Chloride 102 (98-107) mmol/L Carbon Dioxide 26 (22-32) mmol/L BUN 17 (9-20) mg/dL Creatinine 0.80 (0.66-1.25) mg/dL Estimated GFR > 60.0 (>60) mL/min BUN/Creatinine Ratio 21.3 (6-22) Glucose 95 (80-110) mg/dL Calcium 9.5 (8.4-10.2) mg/dL Total Bilirubin 0.9 (0.2-1.3) mg/dL AST 25 (17-59) IU/L ALT 10 L (21-72) IU/L Alkaline Phosphatase 103 (38-126) U/L Troponin I < 0.012 (0.01-0.034) ng/mL Total Protein 7.2 (6.3-8.2) g/dL Albumin 4.3 (3.5-5.0) g/dL Globulin 2.9 (1.7-4.1) g/dL Albumin/Globulin Ratio 1.5 (1.0-2.8) Urine Dip Bedside Urine Glucose Negative Bedside Urine Bilirubin - Negative Bedside Urine Ketone - Negative Urine Specific [place] 1.025 Bedside Urine Occult Blood - Negative Bedside Urine pH 6.0 Bedside Urine Protein +/- 15 Bedside Urine Urobilinogen - Negative Bedside Urine Nitrite - Negative Bedside Urine Leukocytes - Negative Esterase Imaging Data CT scan - head: Radiologist's impression: Meño Alvarado 78 M 1940 [place] [address] CT Scan Report Signed Patient: Meño Alvarado EMR#: [id number] : [id number]:[id number] Age/Sex: 78 / MDate of Service: 10/01/18 Loc: ED Accession Number: [id number] Procedure: CT head/brain wo con Ordering Provider: Sherley Lin D.O. PROCEDURE: CT HEAD/BRAIN WO CON INDICATIONS: weakness on right side, longstanding, occs worse TECHNIQUE: Noncontrast 4.5 mm thick angled axial sections acquired from the foramen magnum to the vertex, with coronal and sagittal reformats. For radiation dose reduction, the following was used: automated exposure control, adjustment of mA and/or kV according to patient size. COMPARISON: None. FINDINGS: Image quality: Excellent. CSF spaces: Basal cisterns are patent. No extra-axial fluid collections. Ventricles are normal in size and shape. Brain: No midline shift. No intracranial masses or hemorrhage. Machado-white matter interface is normal. There is moderate diffuse cerebral and cerebellar volume loss. Bilateral basal ganglia calcifications are noted. There is moderate subcortical and periventricular white matter hypoattenuation with involvement of the nickie, which is nonspecific. Vascular calcifications are noted. Skull and face: Calvarium and visualized facial bones are intact, without suspicious lesions. Sinuses: Bilateral ethmoid sinus mucosal thickening. IMPRESSION: 1. No CT evidence of acute intracranial hemorrhage or large territorial infarct. 2. Moderate periventricular and subcortical white matter hypoattenuation with involvement of the nickie, which is nonspecific but can be seen with chronic microvascular ischemic changes or white matter disease. Consider MRI if there is continued clinical concern. Dictated by: Meño Boss M.D. on 10/01/2018 at 11:51 Approved by: Meño Boss M.D. on 10/01/2018 at 11:57 CT Cspine: Radiologist's impression: Meño Alvarado M 1940 [place] [address] CT Scan Report Signed Patient: Meño Alvarado EMR#: [id number] : 1940cct:[id number] Age/Sex: 78 / MDate of Service: 10/01/18 Loc: Accession Number: [id number] Procedure: CT cervical spine wo con Ordering Provider: Sherley Lin D.O. PROCEDURE: CT CERVICAL SPINE WO CON INDICATIONS: weakness right side, numb fingers, ? metastatics disease TECHNIQUE: Noncontrast 3 mm thick sections acquired from the skull base to the T4 level. Sagittal and coronal reformats were then constructed. For radiation dose reduction, the following was used: automated exposure control, adjustment of mA and/or kV according to patient size. COMPARISON: None. FINDINGS: Image quality: Excellent. Bones: Visualized superior ribs are intact. Moderate multilevel degenerative changes of the cervical spine, including at the atlantodens interval and craniocervical junction. There is an irregular lytic lesion within the posterior elements of C7. No other fractures or dislocations are identified. Overall alignment of the cervical spine remains intact. Soft tissues: Prevertebral soft tissues are normal in thickness. No paravertebral hematomas. No apical pneumothoraces. Calcified plaque of the vasculature noted. Increased number of nonenlarged lymph nodes in the right cervical chain, a no nspecific finding. IMPRESSION: Irregular lytic lesion of the posterior elements of C7, which would be compatible with metastatic disease in the appropriate clinical setting. Consider PET/CT if there is continued clinical concern for metastatic disease. Dictated by: Meño Boss M.D. on 10/01/2018 at 11:57 Approved by: Meño Boss M.D. on 10/01/2018 at 12:05 shoulder xray: Radiologist's impression: [address] [address] XRay Report Signed Patient: Meño Alvarado EMR#: [id number] : 9Acct:[id number] Age/Sex: 78 / MDate of Service: 10/01/18 Loc: ED Accession Number: [id number] Procedure: XR shoulder LT min 2V Ordering Provider: Sherley Lin D.O. PROCEDURE: XR SHOULDER LT MIN 2V INDICATIONS: fall,now with severe pain TECHNIQUE: 3 views of the shoulder were acquired. COMPARISON: None. FINDINGS: Bones: Both are diffusely demineralized. There are moderate degenerative changes of the left acromioclavicular joint. No acute fracture or dislocation of the left shoulder is seen. Soft tissues: No suspicious soft tissue calcifications. IMPRESSION: Degenerative changes of the left acromioclavicular joint, with no acute left shoulder fracture or dislocation seen. Consider followup radiographs in 7-10 days if there is continued clinical concern. Dictated by: Meño Boss M.D. on 10/01/2018 at 12:12 Approved by: Meño Boss M.D. on 10/01/2018 at 12:14 ECG Data Attestation: I personally reviewed and interpreted this ECG as follows: Prior ECG tracings: available for review Interpretation: Sinus rhythm with occasional supraventricular complexes. Rate of 73 P are 127 QRS of 106 and QTC of 439 nonspecific changes. Patient's EKG in comparison to 12/22/2017 appears fairly similar although patient had more T-wave flattening on prior EKG. MDM Narrative Medical decision making narrative: On exam patient has no weakness per NIH scale but does have to work a little harder to hold his arm and leg per patient. He does not have any drift. He also has to concentrate more according to the patient to do his finger-nose and heel-matamoros. He is able to accomplish these without major issue. Patient does not have any symptoms or recent changes that are suggestive of a TIA or CVA today. The numbness and tingling in his fingers and with his history of prostate cancer with potential for metastatic disease is more concerning for a lytic or metastatic lesion then fracture although he has had falls. He has no bony tenderness on exam but does complain of pain. He does not do well with narcotics so after discussion with patient and will try Tylenol 3 which was helpful for his pain. Patient states that the pain is not consistent and can come and go. His lab work does not show any major abnormalities, head CT does not show any metastatic lesions, bleed or other acute changes. C7 posterior elements of the vertebrae do show a lytic lesion and discussed with patient and family about having him follow up with Oncology for PET scan and further evaluation. They have not had any more evaluation or offered further by the urologist who states that if he has had a recurrence of his prostate cancer there would be no major interventions. Patient's was able to ambulate in the department with a walker without any issue we did discuss possibly bring him in for observation but patient was reluctant to do this. Given referral for Oncology. Prescription for Tylenol No. 3 told to return if they are having worsening symptoms or increasing difficulties at home. Discharge Plan Departure Patient Disposition: Home Clinical Impression: Lytic bone lesions on xray, Multiple falls Discharge Date/Time: 10/01/18 15:55 Interventions: ED Discharge Assessment Last Done: 10/01/18 15:53 Instructions: How to Prevent Falls Activity Restrictions/Additional Instructions: Follow-up with your primary care or Oncology in the next 2-3 days. Call Wednesday morning for an appointment. You may continue Tylenol 3 as needed for pain. You may take ibuprofen with this medication. Continue your home medications as prescribed. Discussed with her physician, based on the CT findings of a lytic lesion on your CT scan at C7 about possibly obtaining a bone scan or PET scan. Return to the ER for fevers greater than 100.4, sudden severe headaches, new weakness, new numbness, persistent vomiting, chest pain, shortness of breath, worsening symptoms or other new or concerning symptoms. Prescriptions: New acetaminophen-codeine [Tylenol-Codeine #3] 300-30 mg tablet 1 tab PO Q4-6H PRN (Reason: pain) Qty: 10 RF: 0 No Action donepezil 10 mg tablet 10 mg PO DAILY RF: 0 sertraline 100 mg tablet 100 mg PO DAILY RF: 0 potassium chloride 20 mEq tablet,ER particles/crystals 20 meq PO QID RF: 0 doxylamine succinate 25 mg Tablet 25 mg PO BEDTIME PRN (Reason: Insomnia) RF: 0 fludrocortisone 0.1 mg tablet 0.1 mg PO DAILY RF: 0 folic acid-vit B6-vit B12 [Folbic] 2.5-25-2 mg Tablet 1 tab PO DAILY RF: 0 melatonin 5 mg Tablet 5 mg PO BEDTIME PRN (Reason: Insomnia) RF: 0 Lactobacillus acidophilus [Probiotic] 10 billion cell Capsule 1 cap PO DAILY RF: 0 carbidopa-levodopa [Rytary] 23.75-95 mg Capsule, Extended Release 4 cap PO QID RF: 0 midodrine 5 mg tablet 10 mg PO TID RF: 0 Droxidopa [Droxidopa] 300 mg PO AC Qty: 60 RF: 0 Referrals: Licha Lott PA-C [Primary Care Provider] - Sina Gold MD [Physician] -
[2018-10-01] MEDS: CODEINE/ACETAMINOPHEN 30/300 TABLET 1 TAB PO (11:37)
[2018-10-01] MEDS: SODIUM CHLORIDE 0.9% 1,000 ML 150 ML IV (11:37)
--- NOTE | 2018-10-01 11:42 | DI.RAD.S_ITS ---
PROCEDURE: XR SHOULDER LT MIN 2V INDICATIONS: fall,now with severe pain TECHNIQUE: 3 views of the shoulder were acquired. COMPARISON: None. FINDINGS: Bones: Both are diffusely demineralized. There are moderate degenerative changes of the left acromioclavicular joint. No acute fracture or dislocation of the left shoulder is seen. Soft tissues: No suspicious soft tissue calcifications. IMPRESSION: Degenerative changes of the left acromioclavicular joint, with no acute left shoulder fracture or dislocation seen. Consider followup radiographs in 7-10 days if there is continued clinical concern. Dictated by: Meño Boss M.D. on 10/01/2018 at 12:12 Approved by: Meño Boss M.D. on 10/01/2018 at 12:14
[2018-10-01 12:06] LABS: Add Manual Diff / Slide Review NO; Basophils Absolute Auto 100 /uL (0-100); Basophils Percent Auto 0.9 % (0-2); Eosinophils Absolute Auto 200 /uL (0-450); Eosinophils Percent Auto 3.8 % (2-4); Hematocrit 40.3 % (41-53); Hemoglobin 13.5 g/dL (13.5-17.5); Lymphocytes Absolute Auto 1500 /uL (1100-4500); Lymphocytes Percent Auto 22.7 % (25-40); Mean Corpuscular HGB Conc 33.6 % (30-36); Mean Corpuscular Hemoglobin 33.8 PG (26-34); Mean Corpuscular Volume 100.6 fL (80-100); Monocytes Absolute Auto 400 /uL (0-900); Monocytes Percent Auto 6.3 % (3-14); Neutrophils Absolute Auto 4300 /uL (1500-7000); Neutrophils Percent Auto 66.3 % (50-75); Platelet Count 168 X10^3/uL (150-400); Red Cell Distribution Width 13.9 % (11.6-14.8); White Blood Cell Count 6.4 X10^3/uL (4.5-11.0)
[2018-10-01 12:10] LABS: INR 1.1 (0.9-1.3); Prothrombin Time 12.2 SECONDS (10.1-12.7)
[2018-10-01 12:12] LABS: PTT Partial Thromboplastin Tim 26 SECONDS (26.4-36.2)
[2018-10-01 12:14] LABS: Alanine Aminotransferase 10 IU/L (21-72); Albumin 4.3 g/dL (3.5-5.0); Albumin Globulin Ratio 1.5 (1.0-2.8); Alkaline Phosphatase 103 U/L (38-126); Aspartate Aminotransferase 25 IU/L (17-59); BUN Creatinine Ratio 21.3 (6-22); Bilirubin Total 0.9 mg/dL (0.2-1.3); Blood Urea Nitrogen 17 mg/dL (9-20); Calcium 9.5 mg/dL (8.4-10.2); Carbon Dioxide 26 mmol/L (22-32); Chloride 102 mmol/L (98-107); Estimated Glomerular Filt Rate > 60.0 mL/min (>60); Globulin 2.9 g/dL (1.7-4.1); Glucose 95 mg/dL (80-110); HEMOLYSIS 19 (0-50); Potassium 3.6 mmol/L (3.4-5.1); Sodium 139 mmol/L (137-145); Total Protein 7.2 g/dL (6.3-8.2)
[2018-10-01 12:26] LABS: Troponin I < 0.012 ng/mL (0.01-0.034)
--- NOTE | 2018-10-01 14:49 | PC.NURSE ---
area clensed , irrigated with normal saline, dried and bandaid applied. tolerated well. right elbow with small skin tear, hemostasis, right wrist with small skin tear, also hemostasis. +distal cms intact.
[2018-10-01 14:50] VITALS: BP 170/70; PULSE 46; RESP 16; O2SAT 97
[2018-10-01 15:00] VITALS: BP 169/90; PULSE 68; RESP 16
== END 2018-10-01 15:55 | disposition home or self-care (01) ==
PROVIDERS: Emergency Provider Emergency Medicine; PCP Physician Assistant
DX: M89.9 Disorder of bone, unspecified (principal); Z91.81 History of falling; I25.10 Atherosclerotic heart disease of native coronary artery without angina pectoris
CPT/HCPCS: 36591; 70450; 72100; 72125; 73030; 80053; 81003; 84484; 85025; 85610; 85730; 93005; 93010; 96360; 96361; 99284; 99285

== ENCOUNTER → 2018-10-06 08:22 | Oncology outpatient (ONC) | payer MEDICARE, OTHER, SELFPAY ==
[2017-12-22 22:27] VITALS: BMI 24.3
--- NOTE | 2018-10-06 08:23 | ONC.CONS ---
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 He has history of coronary artery disease with 3 stents. He has a history of prostate cancer status post brachytherapy. I do not have the detailed medical records as far as the prostate cancer is concerned. Per my conversation with patient patient's and patient's son, patient's prostate cancer was diagnosed [address] [facility]. Patient said that he had biopsy but he could not remember the Salvador score. Patient underwent brachytherapy under the care of Dr. Steiner. Patient initially was followed for [address] Steiner. Patient's said that the PSA level was undetectable. There after patient has been followed by his primary care provider. Recently for the past 2-3 years, patient was found to have a rising PSA level. Patient said that he went to [place] and was evaluated by a neurologist. He was told that nothing could be done. On 10/01/2018 he was evaluated at the emergency room for multiple falls intermittently. He was also complaining of pain in his neck and upper back as well as sutures and sometimes hips. Noncontrast CT of the neck on 10/01/2018 showed irregular lytic lesion of the posterior elements of C7 which would be compatible with metastatic disease in the appropriate clinical setting. He was then referred here for evaluation of possible recurrence of possible cancer. He has lost 70-80 lb over 2-3 of years. He has a poor appetite per and son, but the patient does not think so. He is complaining of pain all over his body including lower back and shoulders, numbness of his right hand. He has right sided weakness due to Parkinson Disease and is getting progressively worse. He is having some shortness of breath. He is not steady at home. He reports that sometimes having upper chest, and gets better when sitting. No acid reflux. No abdominal pain. no diarrhea and no constipation. Frequent nocturnal urination at night. This has been going on for a long. CC: Byron Atwood MD Patient reports pain?: Yes Home Medications and Allergies Home Medications Medication Instructions Recorded Confirmed Type carbidopa-levodopa [Rytary] 4 cap PO QID 12/22/17 12/22/17 History donepezil 10 mg PO DAILY 12/22/17 12/22/17 History fludrocortisone 0.1 mg PO DAILY 12/22/17 12/22/17 History folic acid-vit B6-vit B12 [Folbic] 1 tab PO DAILY 12/22/17 12/22/17 History midodrine 10 mg PO TID 12/22/17 12/22/17 History potassium chloride 20 meq PO QID 12/22/17 12/22/17 History sertraline 100 mg PO DAILY 12/22/17 12/22/17 History droxidopa [droxidopa] 300 mg PO AC #60 tab 12/28/17 Rx potassium chloride 80 meq PO DAILY 10/06/18 10/06/18 History Allergies Allergy/AdvReac Type Severity Reaction Status Date / Time morphine AdvReac Intermediate Hallucinati Verified 12/22/17 20:11 ng Medical History - Medical, Surgical, Family History Medical History: Medical History (Last Reviewed 10/01/18 @ 15:30 by Sherley Lin DO) Coronary artery disease Insomnia Neurogenic orthostatic hypotension Parkinson disease Surgical History: Surgical History (Last Updated 10/06/18 @ 09:23 by Byron Atwood MD) History of appendectomy History of heart artery stent - Social History Smoking Status: Never smoker Review of Systems All systems PM: reviewed and no additional remarkable complaints except as stated Exam Vital signs: Last Vital Signs Temp 98.4 F 10/06/18 08:52 Pulse 75 10/06/18 08:52 Resp 75 H 10/06/18 08:52 BP 168/83 H 10/06/18 08:52 Pulse Ox 98 10/06/18 08:52 ECOG 1 Narrative: Constitutional: frail, in wheelchair, thin, accompanied by his and his son.pleasant and cooperative. HEENT: NCAT, EOMI, PERRLA, anicteric sclera. Neck: Supple, No palpable thyromegaly or lymphadenopathy. Respiratory: Clear to auscultation, and no wheezes or rales or rubs. Cardiovascular: RRR, S1 and S2 normal, no M/G/R. No JVD. Abdomen: Soft, NTND, BS normal, no palpable organomegaly, no hernia, no palpable masses. Extremities: 1+ pitting edema noted bilaterally. Lymphatic: no palpable lymph nodes in the neck, axillae Skin: no rashes, no ulcers, no petechiae Neurological: AOx3, CN II-XII grossly intact. Tremor noted especially on the right side. Results - Labs None for review today. Assessment and Plan (1) Prostate cancer Assessment and plan: Patient has a remote history of prostate cancer treated with brachytherapy 14 years ago. Given the long history I am guessing probably it is a low Davenport score prostate cancer. We will request the medical records from [facility]. I do not have any PSA records since. No PSA record recently either. Because of concurrent Parkinson's disease with orthostatic hypotension, patient has had multiple ER visits. During his recent ER visits, CT of the neck showed lytic lesions in C7 posterior elements. Clinically I do not think there is any new focal neurological signs. I talked with the patient that in order to determine if there is metastatic recurrence of his previous prostate cancer, we will proceed with laboratory tests including PSA levels. I will also obtain a whole body bone scan for further evaluation. I will bring this patient back after the study is complete about probably in 1 week. Patient's family asked about if he is eligible for hospice care. I talked with them that in my opinion, we do not know if the patient has a recurrent metastatic prostate cancer yet. In addition even for metastatic prostate cancer with appropriate treatment, the life span will be in years. Thus I do not think he is a good candidate for hospice care from oncological point of view. Patient and patient's family or voiced understanding. (2) Parkinson disease Patient currently is being followed by his neurologist
[2018-10-06 08:52] VITALS: BP 168/83; PULSE 75; RESP 75; TEMP 36.9; O2SAT 98
--- NOTE | 2018-10-10 09:01 | CM.SWNOTE ---
Late Entry: Visit 10/06/18 Activity: New Pt Intro Met with pt, and pt's son to introduce myself as the Pt Eliecer/BAG LINER, offer services card, and determine initial needs. Pt's states that she is unable to take him home, that he is falling several times per day, is becoming progressively weaker, is only minimally eating, is losing weight, and that she is unable to assist him with his ADL's and getting him up off of the floor when he does fall. He's becoming incontinent at night, and has not been able to utilize the hand held urinal that they had been using successfully until now. Pt states that he is [facility]% [facility], and has a provider, Dr. Alesia Mendes ( , ext. [phone]). states that they cannot afford private pay, and she doesn't think that he will qualify for Medicaid. She is asking if pt can be referred to hospice services, or, if we can hospitalize him for about a week. BAG LINER explained that we won't be able to admit him inpt to the hospital, and that this is more of a caregiving issue than a medical issue. BAG LINER agreed to explore with the [facility] what benefits pt qualifies for in terms of long-term care/senior living placement. Dr. Atwood assessed him during this visit and feels that pt does not meet criteria for a qualifying diagnosis of 6-months or less for hospice, and believes that pt's primary medical issue is Parkinson's disease-related. Plan: BAG LINER will f/u with pt's once VA benefits have been clarified.
--- NOTE | 2018-10-10 10:39 | ONC.NAV ---
Description: VA benefits, placement need Activity: FURNITURE DUSTER spoke with pt's VA social work assistant, Radha Pena, who explained that even with 100% VA connection, that pt won't qualify for custodial care placement without being a hospice patient. She said that their is one facility down south of [place], however there is a long waitlist, and he would most likely qualify for hospice by the time his name came up on the list. For veterans not on hospice, there is a respite program that allows 30-calendar days per year of respite in a facility, and that pt's could call her to learn more about the program and the process of setting it up. FURNITURE DUSTER then called to share the above information, and states that pt is now inpt at [facility], was hospitalized after she called 911 for stroke symptoms. Pt will remain inpt until a plan is determined for discharge-family is hoping for d/c to SNF for rehab. states that she will update us with what the plan moving forward is going to be. She asked for his provider appt. and body scan appointments be cancelled here at ; FURNITURE DUSTER took care of this. No further needs identified at this time.
== END ==
PROVIDERS: PCP Physician Assistant; Visit Provider Internal Medicine Hematology & Oncology
DX: M89.9 Disorder of bone, unspecified (principal); Z08 Encounter for follow-up examination after completed treatment for malignant neoplasm; Z85.46 Personal history of malignant neoplasm of prostate; I25.10 Atherosclerotic heart disease of native coronary artery without angina pectoris; Z95.5 Presence of coronary angioplasty implant and graft; G20 Parkinson's disease; G90.3 Multi-system degeneration of the autonomic nervous system
CPT/HCPCS: 99204; 99214

== ENCOUNTER → 2018-12-02 13:51 | Outpatient (CLI) | payer MEDICARE, OTHER, SELFPAY ==
[2018-11-17 15:43] VITALS: BMI 24.3
== END ==
PROVIDERS: PCP Physician Assistant; Visit Provider Family Medicine
DX: L89.153 Pressure ulcer of sacral region, stage 3 (principal); E46 Unspecified protein-calorie malnutrition; G20 Parkinson's disease
CPT/HCPCS: 11042; 87070; 87075; 87077; 87186; 87205; 99203; 99213